=== PATIENT | female | born 1960 | race Caucasian/White ===

== ENCOUNTER → 2020-12-03 | Outpatient (CLI) | payer MEDICARE, OTHER | END | disposition home or self-care (01) | LOC: LABWHC1 16:38 | PROVIDERS: ATTEND Family Medicine | DX: Z20.822 Contact with and (suspected) exposure to COVID-19 (principal); L50.9 Urticaria, unspecified; R11.0 Nausea | CPT/HCPCS: U0003; C9803; U0005 ==

== ENCOUNTER → 2021-04-05 | Outpatient (CLI) | payer MEDICARE, OTHER ==
--- NOTE | 2021-04-05 11:18 | US ---
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 EXAM MEASUREMENTS: Liver Length: 15.0 cm Gallbladder Wall: Surgically absent CBD: 0.7 cm Right Kidney: 10.2 x 3.5 x 4.7 cm Pancreas: duct visualized measuring 0.2 cm, tail obscured by bowel gas Liver: wnl Gallbladder: Surgically absent. Evidence for sonographic Franco's sign: No CBD: wnl Right Kidney: Cystic area visualized measuring 1.7 x 2.0 x 1.5 cm IMPRESSION: 1. There appears to be a cyst within the right kidney. 2. Mild diffuse diminished echogenicity within the liver. No discrete masses are evident.
== END | disposition home or self-care (01) ==
LOC: RADUSWWP 07:21
PROVIDERS: ATTEND Internal Medicine Gastroenterology
DX: B19.20 Unspecified viral hepatitis C without hepatic coma (principal); Z90.49 Acquired absence of other specified parts of digestive tract
CPT/HCPCS: 76705

== ENCOUNTER 2021-12-25 12:26 | Inpatient (IN) | payer MEDICARE, MEDICAID ==
--- NOTE | 2021-12-25 14:32 | ED ---
General Adult HPI - General Chief complaint: Psychiatric Symptoms Stated complaint: Mental health evaluation Time Seen by Provider: 12/25/21 14:16 Source: patient, RN notes reviewed Mode of arrival: wheelchair Limitations: no limitations - History of Present Illness Initial comments: Patient is a pleasant 61-year-old female presenting to the emergency department with concerns for needing mental health evaluation. Patient states she has had a panic attack a couple of days ago that was severe. Patient has been anxious. Patient also feels depressed and is unclear if she has the will to live. No homicidal thoughts. Patient has not been sleeping well. Patient has not been eating and drinking well. Patient has racing thoughts. - Related Data Home Medications Medication Instructions Recorded Confirmed Albuterol Inhaler [Ventolin Hfa 2 puff INHALATION RT-Q4H PRN 12/25/21 12/25/21 Inhaler] Ascorbic Acid [Vitamin C] 1,000 mg PO DAILY 12/25/21 12/25/21 DULoxetine HCL [Cymbalta] 60 mg PO DIRECTED 12/25/21 12/25/21 Gabapentin 300 mg PO BID 12/25/21 12/25/21 HYDROcodone/APAP 10-325MG [[place] 1 tab PO QID PRN 12/25/21 12/25/21 10-325] L.acidoph,Paracasei, B.lactis 1 cap PO DAILY 12/25/21 12/25/21 [Probiotic] Lisinopril-Hctz 20-25 mg 1 tab PO BID 12/25/21 12/25/21 [Zestoretic 20-25] Ondansetron Odt [Zofran Odt] 4 mg PO Q8HR PRN 12/25/21 12/25/21 Ondansetron [Zofran] 4 mg PO BID PRN 12/25/21 12/25/21 Zinc 50 mg PO DAILY 12/25/21 12/25/21 tiZANidine [Zanaflex] 4 mg PO BID PRN 12/25/21 12/25/21 Allergies Allergy/AdvReac Type Severity Reaction Status Date / Time No Known Allergies Allergy Verified 12/25/21 15:57 Review of Systems ROS Statement: Those systems with pertinent positive or pertinent negative responses have been documented in the HPI. ROS Other: All systems not noted in ROS Statement are negative. Constitutional: Denies: fever Eyes: Denies: eye pain ENT: Denies: throat pain Respiratory: Denies: cough Cardiovascular: Denies: chest pain Endocrine: Denies: fatigue Gastrointestinal: Denies: abdominal pain Genitourinary: Denies: dysuria Skin: Denies: rash Neurological: Denies: weakness Psychiatric: Reports: as per HPI, anxiety, depression Past Medical History Past Medical History: COPD, Hypertension History of Any Multi-Drug Resistant Organisms: None Reported Past Surgical History: Back Surgery, Cholecystectomy Past Psychological History: Anxiety, Bipolar, Depression, Panic Disorder Smoking Status: Current every day smoker Past Alcohol Use History: None Reported Past Drug Use History: None Reported General Exam Limitations: no limitations General appearance: alert, in no apparent distress Head exam: Present: atraumatic Eye exam: Present: normal appearance Respiratory exam: Present: normal lung sounds bilaterally Cardiovascular Exam: Present: regular rate, normal rhythm GI/Abdominal exam: Present: soft. Absent: tenderness Extremities exam: Present: normal inspection Neurological exam: Present: alert Psychiatric exam: Present: anxious (Patient does appear mildly anxious) Skin exam: Present: normal color Course Vital Signs 12/25/21 12/25/21 13:02 19:00 Temperature 98.0 F Pulse Rate 82 80 Respiratory 18 18 Rate Blood Pressure 131/85 132/86 O2 Sat by Pulse 98 98 Oximetry Medical Decision Making - Medical Decision Making Patient was seen by mental health services with plan for admission. Patient did agree to sign herself in. - Lab Data Lab Results 12/25/21 Range/Units 16:04 Urine Opiates Screen Not Detected (NotDetected) Ur Oxycodone Screen Not Detected (NotDetected) Urine Methadone Screen Not Detected (NotDetected) Ur Propoxyphene Screen Not Detected (NotDetected) Ur Barbiturates Screen Not Detected (NotDetected) U Tricyclic Antidepress Not Detected (NotDetected) Ur Phencyclidine Scrn Not Detected (NotDetected) Ur Amphetamines Screen Not Detected (NotDetected) U Methamphetamines Scrn Not Detected (NotDetected) U Benzodiazepines Scrn Not Detected (NotDetected) Urine Cocaine Screen Not Detected (NotDetected) U Marijuana (THC) Screen Not Detected (NotDetected) Disposition Clinical Impression: Depression Disposition: TRANSFER TO PSYCH HOSP/UNIT Is patient prescribed a controlled substance at d/c from ED?: No Referrals: Orlando,Edwin G, MD [Primary Care Provider] - 1-2 days Time of Disposition: 20:28
[2021-12-25] MEDS ORDERED: ACETAMINOPHEN TAB 325 MG TAB PO STA (16:48)
[2021-12-25] MEDS ORDERED: KETOROLAC 15 MG/ML 1 ML VIAL IM STA (16:48)
[2021-12-25 17:02] LABS: Amphetamine Screen,Urine Not Detected (NotDetected); Barbiturate Screen,Urine Not Detected (NotDetected); Benzodiazepines Screen,Urine Not Detected (NotDetected); Cocaine Screen,Urine Not Detected (NotDetected); Methadone Screen, Urine Not Detected (NotDetected); Opiate Screen,Urine Not Detected (NotDetected); Oxycodone Screen, Urine Not Detected (NotDetected); Phencyclidine Screen,Urine Not Detected (NotDetected); Tricyclic Antidepressant,Urine Not Detected (NotDetected); Urn Cannabinoid Scrn Not Detected (NotDetected)
[2021-12-25] MEDS ORDERED: HYDROcodone/APAP 10-325MG 1 EACH TAB PO ONE (19:24)
[2021-12-25] MEDS ORDERED: ACETAMINOPHEN TAB 325 MG TAB PO PRN (22:44)
[2021-12-25] MEDS ORDERED: HALOPERIDOL LACTATE 5 MG/ML 1 ML VIAL IM PRN (22:44)
[2021-12-25] MEDS ORDERED: MAG HYDROX/AL HYDROX/SIMETH 30 ML CUP PO PRN (22:44)
[2021-12-25] MEDS ORDERED: LORazepam 1 MG TAB PO PRN (22:44)
[2021-12-25] MEDS ORDERED: MAGNESIUM HYDROXIDE 2,400 MG/10 ML CUP PO PRN (22:44)
[2021-12-25] MEDS ORDERED: LORazepam 2 MG/ML INJ IM PRN (22:53)
[2021-12-25] MEDS ORDERED: haloperidoL 5 MG TAB PO PRN (22:54)
[2021-12-25] MEDS ORDERED: traZODone HCL 50 MG TAB PO PRN (22:55)
[2021-12-25] MEDS ORDERED: ONDANSETRON 4 MG TAB PO PRN (22:55)
[2021-12-25] MEDS ORDERED: ALBUTEROL HFA INHALER INHALATION PRN (22:55)
[2021-12-25] MEDS ORDERED: DULoxetine HCL 60 MG CAPSULE.DR PO SCH (23:00)
[2021-12-26] MEDS: HYDROcodone/APAP 10-325MG 1 EACH TAB PO SCH ×3 (08:09→20:20)
[2021-12-26] MEDS: ASCORBIC ACID 500 MG TAB PO SCH (08:09)
[2021-12-26] MEDS: NICOTINE 14MG/24HR PATCH TRANSDERM SCH ×2 (08:09→13:10)
[2021-12-26] MEDS: GABAPENTIN 300 MG CAP PO SCH ×2 (08:09→20:19)
[2021-12-26] MEDS: ZINC SULFATE 220 MG CAP PO SCH (08:33)
[2021-12-26] MEDS: LISINOPRIL-HCTZ 20-25 MG 1 EACH TAB PO SCH ×2 (08:33→20:21)
[2021-12-26] MEDS: LACTOBACILLUS ACIDOPH & BULGAR 1 EACH PACKET PO SCH (08:36)
[2021-12-26] MEDS ORDERED: tiZANidine 4 MG TAB PO PRN (09:00)
[2021-12-26] MEDS ORDERED: SERTRALINE 50 MG TAB PO STA (10:33)
[2021-12-26 11:46] LABS: Basophils % (A) 0 %; Eosinophils # (A) 0.3 k/uL (0-0.7); Eosinophils % (A) 8 %; HCT 40.2 % (34.0-46.0); HGB 13.3 gm/dL (11.4-16.0); Lymphocytes # (A) 1.6 k/uL (1.0-4.8); Lymphocytes % (A) 41 %; MCH 32.3 pg (25.0-35.0); MCHC 33.2 g/dL (31.0-37.0); MCV 97.4 fL (80.0-100.0); Mean Platelet Volume 7.9; Monocytes # (A) 0.3 k/uL (0-1.0); Monocytes % (A) 6 %; Neutrophils # (A) 1.5 k/uL (1.3-7.7); Neutrophils % (A) 39 %; Platelet Count 179 k/uL (150-450); RBC 4.12 m/uL (3.80-5.40); RDW 13.7 % (11.5-15.5); WBC 3.9 k/uL (3.8-10.6)
[2021-12-26 11:59] LABS: ALT 68 U/L (4-34); AST 96 U/L (14-36); African American GFR (CKD) >90 (>60 ml/min/1.73 sqM); Albumin 3.9 g/dL (3.5-5.0); Alkaline Phosphatase 91 U/L (38-126); Anion Gap 6 mmol/L; Blood Urea Nitrogen 20 mg/dL (7-17); Calcium 8.9 mg/dL (8.4-10.2); Carbon Dioxide 28 mmol/L (22-30); Chloride 96 mmol/L (98-107); Glucose 91 mg/dL (74-99); Non-African American GFR(CKD) >90 (>60 ml/min/1.73 sqM); Potassium 4.7 mmol/L (3.5-5.1); Sodium 130 mmol/L (137-145); Total Bilirubin 1.1 mg/dL (0.2-1.3); Total Protein 7.5 g/dL (6.3-8.2)
--- NOTE | 2021-12-26 13:25 | P.HP ---
Psychiatric H&P - . H&P Date: 12/26/21 History & Physical: Allergies Allergy/AdvReac Type Severity Reaction Status Date / Time No Known Allergies Allergy Verified 12/25/21 15:57 Vital Signs Temp 96.9 F L 12/26/21 02:32 Pulse 85 12/26/21 08:36 Resp 18 12/25/21 19:00 BP 133/78 12/26/21 08:36 Pulse Ox 98 12/25/21 19:00 Intake & Output 12/25/21 12/26/21 12/26/21 18:59 06:59 18:59 Weight 65.771 kg Laboratory Last Values WBC 3.9 k/uL (3.8-10.6) 12/26/21 11:08 RBC 4.12 m/uL (3.80-5.40) 12/26/21 11:08 Hgb 13.3 gm/dL (11.4-16.0) 12/26/21 11:08 Hct 40.2 % (34.0-46.0) 12/26/21 11:08 MCV 97.4 fL (80.0-100.0) 12/26/21 11:08 MCH 32.3 pg (25.0-35.0) 12/26/21 11:08 MCHC 33.2 g/dL (31.0-37.0) 12/26/21 11:08 RDW 13.7 % (11.5-15.5) 12/26/21 11:08 Plt Count 179 k/uL (150-450) 12/26/21 11:08 MPV 7.9 12/26/21 11:08 Neutrophils % 39 % 12/26/21 11:08 Lymphocytes % 41 % 12/26/21 11:08 Monocytes % 6 % 12/26/21 11:08 Eosinophils % 8 % 12/26/21 11:08 Basophils % 0 % 12/26/21 11:08 Neutrophils # 1.5 k/uL (1.3-7.7) 12/26/21 11:08 Lymphocytes # 1.6 k/uL (1.0-4.8) 12/26/21 11:08 Monocytes # 0.3 k/uL (0-1.0) 12/26/21 11:08 Eosinophils # 0.3 k/uL (0-0.7) 12/26/21 11:08 Basophils # 0.0 k/uL (0-0.2) 12/26/21 11:08 Sodium 130 mmol/L (137-145) L 12/26/21 11:08 Potassium 4.7 mmol/L (3.5-5.1) 12/26/21 11:08 Chloride 96 mmol/L (98-107) L 12/26/21 11:08 Carbon Dioxide 28 mmol/L (22-30) 12/26/21 11:08 Anion Gap 6 mmol/L 12/26/21 11:08 BUN 20 mg/dL (7-17) H 12/26/21 11:08 Creatinine 0.72 mg/dL (0.52-1.04) 12/26/21 11:08 Est GFR (CKD-EPI)AfAm >90 (>60 ml/min/1.73 sqM) 12/26/21 11:08 Est GFR (CKD-EPI)NonAf >90 (>60 ml/min/1.73 sqM) 12/26/21 11:08 Glucose 91 mg/dL (74-99) 12/26/21 11:08 Calcium 8.9 mg/dL (8.4-10.2) 12/26/21 11:08 Total Bilirubin 1.1 mg/dL (0.2-1.3) 12/26/21 11:08 AST 96 U/L (14-36) H 12/26/21 11:08 ALT 68 U/L (4-34) H 12/26/21 11:08 Alkaline Phosphatase 91 U/L (38-126) 12/26/21 11:08 Total Protein 7.5 g/dL (6.3-8.2) 12/26/21 11:08 Albumin 3.9 g/dL (3.5-5.0) 12/26/21 11:08 TSH <0.015 mIU/L (0.465-4.680) L 12/26/21 11:08 Urine Opiates Screen Not Detected (NotDetected) 12/25/21 16:04 Ur Oxycodone Screen Not Detected (NotDetected) 12/25/21 16:04 Urine Methadone Screen Not Detected (NotDetected) 12/25/21 16:04 Ur Propoxyphene Screen Not Detected (NotDetected) 12/25/21 16:04 Ur Barbiturates Screen Not Detected (NotDetected) 12/25/21 16:04 U Tricyclic Antidepress Not Detected (NotDetected) 12/25/21 16:04 Ur Phencyclidine Scrn Not Detected (NotDetected) 12/25/21 16:04 Ur Amphetamines Screen Not Detected (NotDetected) 12/25/21 16:04 U Methamphetamines Scrn Not Detected (NotDetected) 12/25/21 16:04 U Benzodiazepines Scrn Not Detected (NotDetected) 12/25/21 16:04 Urine Cocaine Screen Not Detected (NotDetected) 12/25/21 16:04 U Marijuana (THC) Screen Not Detected (NotDetected) 12/25/21 16:04 Coronavirus (PCR) Not Detected (Not Detectd) 12/25/21 20:27 12/26/21 13:25 IDENTIFYING DATA: Patient is a single, on disability, 61-year-old female with significant history of depression and anxiety presenting to the hospital for worsening depression. HPI: Patient presented to the hospital on 12/25/2021, brought into the emergency department by EMS for panic attacks and depression. While evaluated by EPS, the patient was noted to be disheveled and endorsing significant symptoms of depression and anxiety. The patient did endorse suicidal ideation to the EPS nurse stating "I'm ready to go home and see my mother and my daughter. I am very sad and there is no 'umph' in me." The patient signed herself voluntarily on to the psychiatric unit. Upon presentation psychiatric unit, the patient does endorse significant symptoms of depression. She reports that this has been going on for the past few weeks since . She reports that during she was speaking with her ex partner of 10 years over the phone and felt increasingly depressed and isolated being by herself in [place]. She reports significant symptoms of depression including increased crying episodes, increased sleep, decreased appetite, anhedonia, and feelings of loneliness and isolation. She denies any suicidal or homicidal ideation, intention, and/or plan. She denies any previous attempts at suicide. She reports that this all came to a head when she was driving to [place] to see her childhood home. She states that she experienced a panic attack and was unable to control herself. She stated that she was crying uncontrollably and could not breathe. She decided to come to the psychiatric unit to seek help. The patient also reports that she set up an appointment with clinical [facility] services on 12/30/2021. In regards to psychotic symptoms, the patient denies any auditory or visual hallucinations. She is denying any paranoia or other delusions. Patient denies any significant symptoms of patel. She reports that she was pretty diagnosed with bipolar 2 disorder however denies any significant history of manic and hypomanic episodes. She currently denies any racing thoughts, increased goal- directed activity, periods of excessive energy, or grandiosity. PAST PSYCHIATRIC HISTORY: Patient states that she was pretty diagnosed with depression, anxiety, and bipolar 2 disorder. The patient is able to recall being previously prescribed regimen of Abilify, Wellbutrin, Adderall, and Xanax. She is currently on a regimen of Cymbalta and Klonopin by her outpatient PCP. Patient denies any previous psychiatric hospitalizations. Patient denies any psychiatric outpatient follow-up. Patient denies any history of suicide attempts in the past. PMH: Past Medical History: COPD, Hypertension History of Any Multi-Drug Resistant Organisms: None Reported Past Surgical History: Back Surgery, Cholecystectomy Past Psychological History: Anxiety, Bipolar, Depression, Panic Disorder Smoking Status: Current every day smoker Past Alcohol Use History: None Reported Past Drug Use History: None Reported ALLERGIES: NO KNOWN DRUG ALLERGIES CHEMICAL DEPENDENCY HISTORY: Patient reports that she appears he smoked one and half packs per day but has decreased this to 5 cigarettes per day. She currently denies any alcohol, marijuana, or illicit drug use. FAMILY PSYCHIATRIC/SUBSTANCE USE HISTORY: Patient reports that her mother has been previous diagnosis of depression and anxiety. She states that her father committed suicide. SOCIAL HISTORY: Patient was born in [place], [place] and raised in [place], [place]. She moved to [place] 10 years ago and moved back to [place] a year and a half ago. She moved therefore love but is currently not with that partner. She has 4 children from a previous relationship including 2 sons and 2 daughters however reports minimal contact with them. She also reports that one of her daughters due to lupus in 2011. The patient currently receives disability after she was crushed by a horse in 2001. She reports a history of a brain bleed. She attended some college. MENTAL STATUS EXAM: General Appearance: Patient appears to be stated age is alert, directable, and attempts to cooperate. Patient appears to have fair hygiene and grooming. Behavior: Patient is seated without any agitated behavior. Eye contact is appropriate. Psychomotor activity appears slow. Speech: Patient's speech is fluent and nonpressured. Monotone. Low in volume. Nonspontaneous. Mood/Affect: Patient reports their mood is depressed, affect is congruent and withdrawn. Suicidality/Homicidality: Patient denies any suicidal or homicidal ideation. Perceptions: Patient denies any visual hallucinations and denies any auditory hallucinations Though content/process: There is no evidence of any delusional thought content and thought process is linear and goal-directed. Memory and concentration: AOX3, grossly intact for the purposes of this session. Can spell "WORLD" backwards Judgment and insight: Fair STRENGTHS/WEAKNESSES: Strength is that the patient is future oriented and has good insight. Weakness is that the patient has little social supports. INTELLECT: average IMPRESSIONS: Major depressive disorder, recurrent, severe, without psychotic features Nicotine dependence PLAN: -Patient is admitted under voluntary status to MHU for stabilization of psychiatric symptoms and safety. Patient signed adult voluntary form and medication consent and is placed in patient's chart. -Medications : Discontinue Cymbalta and start Zoloft 50 mg by mouth daily for depression/anxiety Start Vistaril 50 mg by mouth at bedtime for insomnia/anxiety -Ativan and Haldol PRN for agitation/aggression -Patient was counselled on substance abuse and desired to cut back on use -Patient was informed of the risks, benefits and side effects of the medication and patient verbally consented to taking the medications. Patient signed med consent form and was placed in chart. -Internal Medicine consult to perform medical evaluation and physical. -NRT - nicotine patch -SW on board for discharge planning. Encourage patient to participate in groups to work on coping skills. 12/26/21 13:25
--- NOTE | 2021-12-26 17:27 | CONS ---
CONSULTATION CHIEF COMPLAINT: Major depression. HISTORY OF PRESENT ILLNESS: This is another admission for this 61-year-old white female who has a long-standing history of depression. She has a string of failed relationship issues in her life. She also lost one of her two daughters with lupus several years ago. She apparently became more and more depressed and distraught and came to the emergency room. REVIEW OF SYSTEMS: She denies headaches, change in vision or hearing, chest pain, shortness of breath, hypertension, palpitations, orthopnea, PND, abdominal pain, nausea, vomiting, hematemesis, melena, hematochezia, jaundice, renal failure, frequency, urgency, dysuria, hematuria, nocturia or incontinence. She has had no vaginal bleeding or discharge. She does smoke. Past medical history, family history, and personal and social histories reveal that she has been on Vicodin p.r.n., lidocaine patches, , gabapentin, lisinopril/hydrochlorothiazide and an albuterol inhaler. Surgically she has had a tubal ligation, cholecystectomy, , L-spine fusion, and a procedure on the right eye. She continues to smoke. She is not drinking, but she does have a history of alcoholism. PHYSICAL EXAMINATION: Her blood pressure is 132/88 with a pulse of 60, respirations of 12, and she is afebrile. In general she appeared to be well developed, well nourished and in no acute distress. Skin color is normal. Skin is warm, dry. Lymph nodes are not enlarged. Head, ears, eyes, nose, mouth and throat are normal. Neck veins are not distended. Thyroid is not enlarged. Chest is clear. Cardiac exam is normal. The abdomen is soft and nontender. Extremities are normal. Neurologically she is intact. She is admitted to the hospital with the diagnosis of major depression. RECOMMENDATIONS: None at this time. MMODL / IJN: [id number] /
[2021-12-26] MEDS: hydrOXYzine pamoate 25 MG CAP PO SCH (20:20)
[2021-12-27] MEDS: GABAPENTIN 300 MG CAP PO SCH ×2 (08:17→21:31)
[2021-12-27] MEDS: LISINOPRIL-HCTZ 20-25 MG 1 EACH TAB PO SCH ×2 (08:17→21:30)
[2021-12-27] MEDS: ZINC SULFATE 220 MG CAP PO SCH (08:17)
[2021-12-27] MEDS: HYDROcodone/APAP 10-325MG 1 EACH TAB PO SCH ×3 (08:19→21:31)
[2021-12-27] MEDS: ASCORBIC ACID 500 MG TAB PO SCH (08:19)
[2021-12-27] MEDS: NICOTINE 14MG/24HR PATCH TRANSDERM SCH (08:26)
[2021-12-27] MEDS ORDERED: SERTRALINE 25 MG TAB PO SCH (09:00)
[2021-12-27] MEDS: LACTOBACILLUS ACIDOPH & BULGAR 1 EACH PACKET PO SCH (09:16)
--- NOTE | 2021-12-27 11:11 | P.PN ---
Progress Note - Text Progress Note Date: 12/27/21 Interval History: Patient was seen resting in bed and was directable and agreeable to speak with machine sign writer in her room., The patient is not reporting any suicidal or homicidal ideation, intention, and/or plan. She is denying any auditory or visual hallucinations. She reports no paranoia or delusions. Patient has been adherent with her medication and is not reporting any significant side effects at this time. The patient continues to report elevated anxiety and depression however states that she is feeling better. She continues to report feelings of isolation and loneliness. She denies any issues regarding her sleep or her appetite. Mental Status Exam: General Appearance: Patient appears to be stated age is alert, directable, and cooperative. Behavior: Patient is calmly lying down in bed without any agitated behavior. I contact is appropriate. Speech: Patient's speech is fluent and nonpressured. Mood/Affect: Mood is improving mildly, affect is congruent and constricted. Suicidality/Homicidality: Patient denies having any suicidal or homicidal ideation intent or plan. Perceptions: Patient denies any visual hallucinations and denies any auditory hallucinations Though content/process: There is no evidence of any delusional thought content and thought process is linear and goal-directed. Memory and concentration: AOX3, grossly intact for the purposes of this session Judgment and insight: Improving mildly Vital Signs Temp 96.9 F L 12/26/21 02:32 Pulse 85 12/26/21 08:36 Resp 18 12/25/21 19:00 BP 133/78 12/26/21 08:36 Pulse Ox 98 12/25/21 19:00 Laboratory Results - Last 24 Hours 12/26/21 12/26/21 11:08 11:08 WBC 3.9 RBC 4.12 Hgb 13.3 Hct 40.2 MCV 97.4 MCH 32.3 MCHC 33.2 RDW 13.7 Plt Count 179 MPV 7.9 Neutrophils % 39 Lymphocytes % 41 Monocytes % 6 Eosinophils % 8 Basophils % 0 Neutrophils # 1.5 Lymphocytes # 1.6 Monocytes # 0.3 Eosinophils # 0.3 Basophils # 0.0 Sodium 130 L Potassium 4.7 Chloride 96 L Carbon Dioxide 28 Anion Gap 6 BUN 20 H Creatinine 0.72 Est GFR (CKD-EPI)AfAm >90 Est GFR (CKD-EPI)NonAf >90 Glucose 91 Calcium 8.9 Total Bilirubin 1.1 AST 96 H ALT 68 H Alkaline Phosphatase 91 Total Protein 7.5 Albumin 3.9 TSH <0.015 L Assessment Major depressive disorder, recurrent, severe, without psychotic features Nicotine dependence Hyponatremia Plan: -Patient continues to meet criteria for inpatient psychiatric admission for symptom stabilization and safety. Patient has signed adult voluntary form and medication consent and was placed in patient's chart. -Medications: Continue Zoloft at 50 mg by mouth daily for depression/anxiety. Concern for hyponatremia. Therefore we will not increase this medication at this time. Continue Vistaril 50 mg by mouth at bedtime for insomnia/anxiety -When necessary Ativan and Haldol for agitation/aggression. -NRT - nicotine patch -SW on board for discharge planning. Encouraged the patient to participate in milieu.
[2021-12-27] MEDS: hydrOXYzine pamoate 25 MG CAP PO SCH (21:30)
[2021-12-28 06:56] VITALS: RESP 16
[2021-12-28] MEDS: SERTRALINE 50 MG TAB PO SCH (08:08)
[2021-12-28] MEDS: GABAPENTIN 300 MG CAP PO SCH ×2 (08:08→21:01)
[2021-12-28] MEDS: HYDROcodone/APAP 10-325MG 1 EACH TAB PO SCH ×3 (08:08→21:01)
[2021-12-28] MEDS: LISINOPRIL-HCTZ 20-25 MG 1 EACH TAB PO SCH ×3 (08:08→20:59)
[2021-12-28] MEDS: ASCORBIC ACID 500 MG TAB PO SCH (08:10)
[2021-12-28] MEDS: NICOTINE 14MG/24HR PATCH TRANSDERM SCH (08:12)
[2021-12-28] MEDS: ZINC SULFATE 220 MG CAP PO SCH (08:12)
[2021-12-28] MEDS ORDERED: SERTRALINE 100 MG TAB PO SCH (09:00)
[2021-12-28] MEDS: LACTOBACILLUS ACIDOPH & BULGAR 1 EACH PACKET PO SCH (09:36)
--- NOTE | 2021-12-28 11:03 | P.PN ---
Subjective Progress Note Date: 12/28/21 Principal diagnosis: Major depressive disorder recurrent severe without psychotic features Anxiety disorder unspecified Nicotine dependence Subjective data: I'm here because I was having panic attacks, I have been in a bad relationship for about a year from someone from [place] I have been on disability I have 4 children but I'm not in touch with them I have not needed any medications but I think I need to have them adjusted now I just had all my teeth pulled out last week and I'm in pain and difficulty to talk Objective data: Patient remains very vague and superficial about her symptoms She was pleasant and cooperative overall Affect at this time remains euthymic Thought processes are concrete but goal directed She denies any suicidal or homicidal ideations at this time No signs of any overt psychosis noted Plan: I didn't current care and support continue current pharmacological intervention Patient reports no side effects from Zoloft and Vistaril as prescribed Continue participation on the soares activities Continue assertiveness training and supportive care Syed Ciera Alicea 12/28/2021 Objective - Vital Signs Vital signs: Vital Signs Temp 96.9 F L 12/28/21 06:55 Pulse 99 12/28/21 09:39 Resp 16 12/28/21 06:55 BP 111/72 12/28/21 09:39 Pulse Ox 98 12/25/21 19:00 - Labs CBC & Chem 7: 12/26/21 11:08 12/26/21 11:08
[2021-12-28] MEDS: hydrOXYzine pamoate 25 MG CAP PO SCH (21:01)
[2021-12-29] MEDS: LACTOBACILLUS ACIDOPH & BULGAR 1 EACH PACKET PO SCH (07:55)
[2021-12-29] MEDS: ZINC SULFATE 220 MG CAP PO SCH (07:55)
[2021-12-29] MEDS: HYDROcodone/APAP 10-325MG 1 EACH TAB PO SCH ×3 (07:56→21:21)
[2021-12-29] MEDS: GABAPENTIN 300 MG CAP PO SCH ×2 (07:56→21:22)
[2021-12-29] MEDS: NICOTINE 14MG/24HR PATCH TRANSDERM SCH (07:56)
[2021-12-29] MEDS: LISINOPRIL-HCTZ 20-25 MG 1 EACH TAB PO SCH (07:56)
[2021-12-29] MEDS: ASCORBIC ACID 500 MG TAB PO SCH (07:56)
[2021-12-29] MEDS: SERTRALINE 50 MG TAB PO SCH (07:56)
[2021-12-29 08:21] LABS: ALT 119 U/L (4-34); African American GFR (CKD) >90 (>60 ml/min/1.73 sqM); Albumin 4.3 g/dL (3.5-5.0); Anion Gap 10 mmol/L; Blood Urea Nitrogen 30 mg/dL (7-17); Calcium 9.2 mg/dL (8.4-10.2); Carbon Dioxide 27 mmol/L (22-30); Chloride 94 mmol/L (98-107); Glucose 97 mg/dL (74-99); Non-African American GFR(CKD) >90 (>60 ml/min/1.73 sqM); Potassium 4.9 mmol/L (3.5-5.1); Sodium 131 mmol/L (137-145); Total Bilirubin 1.5 mg/dL (0.2-1.3); Total Protein 8.3 g/dL (6.3-8.2)
[2021-12-29 08:22] LABS: AST 198 U/L (14-36); Alkaline Phosphatase 94 U/L (38-126)
--- NOTE | 2021-12-29 09:56 | P.PN ---
Subjective Progress Note Date: 12/29/21 Principal diagnosis: Major depressive disorder recurrent severe without psychotic features Anxiety disorder unspecified Nicotine dependence Subjective data: I am feeling better now I was in a bad relationship before I follow-up with the local mental health clinic and I take medications regularly I'm ready to go home now" Objective data: Patient remains very vague and superficial about her symptoms She was pleasant and cooperative overall Affect at this time remains euthymic Patient's insight into her problem is poor Patient continues to rationalize and intellectualize Recall for her recent incidents involving around her hospitalization remains poor Thought processes are concrete but goal directed She denies any suicidal or homicidal ideations at this time No signs of any overt psychosis noted Plan: Continue current care and support continue current pharmacological intervention Patient reports no side effects from Zoloft and Vistaril as prescribed Continue participation on the soares activities Continue assertiveness training [facility] Objective - Vital Signs Vital signs: Vital Signs Temp 96.9 F L 12/28/21 06:55 Pulse 103 H 12/29/21 07:58 Resp 16 12/28/21 06:55 BP 104/67 12/29/21 07:58 Pulse Ox 98 12/25/21 19:00 Intake & Output 12/28/21 12/29/21 12/29/21 18:59 06:59 18:59 Weight 63.7 kg - Labs CBC & Chem 7: 12/26/21 11:08 12/29/21 07:10 Labs: Abnormal Lab Results - Last 24 Hours (Table) 12/29/21 Range/Units 07:10 Sodium 131 L (137-145) mmol/L Chloride 94 L (98-107) mmol/L BUN 30 H (7-17) mg/dL Total Bilirubin 1.5 H (0.2-1.3) mg/dL AST 198 H (14-36) U/L ALT 119 H (4-34) U/L Total Protein 8.3 H (6.3-8.2) g/dL
[2021-12-29] MEDS: hydrOXYzine pamoate 25 MG CAP PO SCH (21:21)
[2021-12-30] MEDS: LISINOPRIL-HCTZ 20-25 MG 1 EACH TAB PO SCH ×2 (00:50→08:33)
[2021-12-30 06:42] VITALS: BP 116/60; PULSE 70; TEMP 97.8
[2021-12-30] MEDS: ZINC SULFATE 220 MG CAP PO SCH (08:33)
[2021-12-30] MEDS: ASCORBIC ACID 500 MG TAB PO SCH (08:33)
[2021-12-30] MEDS: GABAPENTIN 300 MG CAP PO SCH (08:33)
[2021-12-30] MEDS: SERTRALINE 50 MG TAB PO SCH (08:33)
[2021-12-30] MEDS: NICOTINE 14MG/24HR PATCH TRANSDERM SCH (08:34)
[2021-12-30] MEDS: LACTOBACILLUS ACIDOPH & BULGAR 1 EACH PACKET PO SCH (08:34)
[2021-12-30] MEDS: HYDROcodone/APAP 10-325MG 1 EACH TAB PO SCH (08:34)
--- NOTE | 2021-12-30 12:36 | P.DS ---
Providers Date of admission: 12/25/21 22:27 Expected date of discharge: 12/30/21 Attending physician: Tigre Fraser MD Consults: 12/25/21 22:44 Consult Physician Routine Consulting Provider: Edwin Ferguson Consult Reason/Comments: history and physical/medical management Do you want consulting provider notified?: Yes Primary care physician: Edwin Ferguson - Discharge Diagnosis(es) (1) Major depressive disorder, recurrent episode, severe Current Visit: Yes Status: Acute (2) Nicotine dependence Current Visit: Yes Status: Chronic Priority: Medium Hospital Course: Admission HPI: Patient is a single, on disability, 61-year-old female with significant history of depression and anxiety presenting to the hospital for worsening depression. HPI: Patient presented to the hospital on 12/25/2021, brought into the emergency department by EMS for panic attacks and depression. While evaluated by EPS, the patient was noted to be disheveled and endorsing significant symptoms of depression and anxiety. The patient did endorse suicidal ideation to the EPS nurse stating "I'm ready to go home and see my mother and my daughter. I am very sad and there is no 'umph' in me." The patient signed herself voluntarily on to the psychiatric unit. Upon presentation psychiatric unit, the patient does endorse significant symptoms of depression. She reports that this has been going on for the past few weeks since . She reports that during she was speaking with her ex partner of 10 years over the phone and felt increasingly depressed and isolated being by herself in [place]. She reports significant symptoms of depression including increased crying episodes, increased sleep, decreased appetite, anhedonia, and feelings of loneliness and isolation. She denies any suicidal or homicidal ideation, intention, and/or plan. She denies any previous attempts at suicide. She reports that this all came to a head when she was driving to [place] to see her childhood home. She states that she experienced a panic attack and was unable to control herself. She stated that she was crying uncontrollably and could not breathe. She decided to come to the psychiatric unit to seek help. The patient also reports that she set up an appointment with clinical [facility] counseling services on 12/30/2021. In regards to psychotic symptoms, the patient denies any auditory or visual hallucinations. She is denying any paranoia or other delusions. Patient denies any significant symptoms of patel. She reports that she was pretty diagnosed with bipolar 2 disorder however denies any significant history of manic and hypomanic episodes. She currently denies any racing thoughts, increased goal- directed activity, periods of excessive energy, or grandiosity. Patient states that she was pretty diagnosed with depression, anxiety, and bipolar 2 disorder. The patient is able to recall being previously prescribed regimen of Abilify, Wellbutrin, Adderall, and Xanax. She is currently on a regimen of Cymbalta and Klonopin by her outpatient PCP. Patient denies any previous psychiatric hospitalizations. Patient denies any psychiatric outpatient follow-up. Patient denies any history of suicide attempts in the past. Hospital course: Upon admission to the unit patient was initially presenting with significant symptoms depression, anxiety, and suicidal ideation. Patient was however directable and agreeable to commence treatment. Patient got along well with other patients on the unit and followed unit protocol. Patient was compliant with the medications and denied any side effects throughout hospital course. Patient was started on Zoloft and Vistaril for maintenance of depression and anxiety. Patient spoke of her stressors and engaged in therapy both group and individual. Patient was also seen by medical team for history and physical exam. Over the course of hospital physician, the patient displayed gradual improvement in regards to her mood, sleep, and suicidality. The patient became more future and goal oriented. On the day of discharge, the patient is not reporting any suicidal or homicidal ideation, intention, and/or plan. She denies any access to firearms or other weapons. The patient reports no auditory or visual hallucinations. She denies any paranoia or other delusions. The patient has been adherent with her medications reports no significant side effects at this time. The patient was counseled at length on the importance of medication adherence and appropriate outpatient follow-up. The patient does not have a significant history substance abuse however was counseled on abstaining from all substances including alcohol, tobacco, marijuana, and other illicit drugs. Prior to discharge, family meeting will be referred to social recurrence any questions and ensure safety. Mental status exam: General Appearance: Patient appears to be stated age is alert, pleasant, and cooperative. Patient is in no acute distress and has fair hygiene and grooming Behavior: Patient is calmly seated without any agitated behavior. Speech: Patient's speech is fluent and nonpressured. Mood/Affect: Patient reports their mood is "much better", affect is congruent and euthymic. Suicidality/Homicidality: Patient denies having any suicidal or homicidal ideation intent or plan. Perceptions: Patient denies any auditory or visual hallucinations. Though content/process: There is no evidence of any delusional thought content and thought process is linear and goal-directed. Patient is future oriented. Memory and concentration: AOX3, grossly intact for the purposes of this session. Can spell "WORLD" backwards correctly. Judgment and insight: Improved Vital Signs Temp 97.8 F 12/30/21 06:41 Pulse 70 12/30/21 06:41 Resp 16 12/30/21 06:41 BP 116/60 12/30/21 06:41 Pulse Ox 98 12/30/21 06:41 Intake & Output 12/29/21 12/30/21 12/30/21 18:59 06:59 18:59 Weight 63.7 kg Impression: Major depressive disorder, recurrent, severe, without psychotic features Nicotine dependence Plan: -Continue with discharge today as patient has improved and stabilized psychiatrically and is not currently an imminent threat to herself and/or others. Patient's acute presentation has been treated. She is stable for discharge. She has no prior attempts at suicide. Overall risk remains low. -Continue medications: Zoloft 50 mg by mouth daily for depression/anxiety Vistaril 50 mg by mouth at bedtime for anxiety/insomnia -Patient was counseled on the need for medication compliance and appropriate follow-up at mental health and also primary care for medical issues. Patient verbalized understanding and agreed. -Social work to arrange for and conduct family meeting to ensure safety upon discharge and answer any questions/concerns. Social work also to arrange for patients follow up appointments with [facility] for psychiatric care along with follow up with primary care provider. -Patient counseled on abstaining from recreational drugs and marijuana and alcohol. Was informed/educated on the adverse effects on their physical and mental health. Patient verbally agreed and understood. -Patient was instructed to return to the hospital or seek immediate medical care if their psychiatric or medical symptoms do worsen or reoccur. -Psychoeducation and supportive therapy provided to patient. Risks and benefits of pharmacological treatment versus the risks and benefits of nontreatment weight and discussed. Informed consent discussion held. Common side effects of psychotropics discussed such as, but not limited to headache, GI disturbance, sexual dysfunction, movement disorders, sedation, and orthostatic hypotension. Life threatening and blackbox warnings of prescribed medications also discussed. Potential risks of operating a vehicle or heavy machinery discussed with patient at length. Advised on importance of compliance and a reliable and responsible manner. Patient advised to review FDA consumer labeling of all medications prior to taking. Patient verbalized understanding of potential risks, and agrees with current treatment plan. Patient advised to medically contact physician/emergency personnel if any acute changes in condition occur. Allergies Allergy/AdvReac Type Severity Reaction Status Date / Time No Known Allergies Allergy Verified 12/25/21 15:57 Laboratory Results WBC 3.9 k/uL (3.8-10.6) 12/26/21 11:08 RBC 4.12 m/uL (3.80-5.40) 12/26/21 11:08 Hgb 13.3 gm/dL (11.4-16.0) 12/26/21 11:08 Hct 40.2 % (34.0-46.0) 12/26/21 11:08 MCV 97.4 fL (80.0-100.0) 12/26/21 11:08 MCH 32.3 pg (25.0-35.0) 12/26/21 11:08 MCHC 33.2 g/dL (31.0-37.0) 12/26/21 11:08 RDW 13.7 % (11.5-15.5) 12/26/21 11:08 Plt Count 179 k/uL (150-450) 12/26/21 11:08 MPV 7.9 12/26/21 11:08 Neutrophils % 39 % 12/26/21 11:08 Lymphocytes % 41 % 12/26/21 11:08 Monocytes % 6 % 12/26/21 11:08 Eosinophils % 8 % 12/26/21 11:08 Basophils % 0 % 12/26/21 11:08 Neutrophils # 1.5 k/uL (1.3-7.7) 12/26/21 11:08 Lymphocytes # 1.6 k/uL (1.0-4.8) 12/26/21 11:08 Monocytes # 0.3 k/uL (0-1.0) 12/26/21 11:08 Eosinophils # 0.3 k/uL (0-0.7) 12/26/21 11:08 Basophils # 0.0 k/uL (0-0.2) 12/26/21 11:08 Sodium 131 mmol/L (137-145) L 12/29/21 07:10 Potassium 4.9 mmol/L (3.5-5.1) 12/29/21 07:10 Chloride 94 mmol/L (98-107) L 12/29/21 07:10 Carbon Dioxide 27 mmol/L (22-30) 12/29/21 07:10 Anion Gap 10 mmol/L 12/29/21 07:10 BUN 30 mg/dL (7-17) H 12/29/21 07:10 Creatinine 0.70 mg/dL (0.52-1.04) 12/29/21 07:10 Est GFR (CKD-EPI)AfAm >90 (>60 ml/min/1.73 sqM) 12/29/21 07:10 Est GFR (CKD-EPI)NonAf >90 (>60 ml/min/1.73 sqM) 12/29/21 07:10 Glucose 97 mg/dL (74-99) 12/29/21 07:10 Calcium 9.2 mg/dL (8.4-10.2) 12/29/21 07:10 Total Bilirubin 1.5 mg/dL (0.2-1.3) H 12/29/21 07:10 AST 198 U/L (14-36) H 12/29/21 07:10 ALT 119 U/L (4-34) H 12/29/21 07:10 Alkaline Phosphatase 94 U/L (38-126) 12/29/21 07:10 Total Protein 8.3 g/dL (6.3-8.2) H 12/29/21 07:10 Albumin 4.3 g/dL (3.5-5.0) 12/29/21 07:10 TSH <0.015 mIU/L (0.465-4.680) L 12/26/21 11:08 Urine Opiates Screen Not Detected (NotDetected) 12/25/21 16:04 Ur Oxycodone Screen Not Detected (NotDetected) 12/25/21 16:04 Urine Methadone Screen Not Detected (NotDetected) 12/25/21 16:04 Ur Propoxyphene Screen Not Detected (NotDetected) 12/25/21 16:04 Ur Barbiturates Screen Not Detected (NotDetected) 12/25/21 16:04 U Tricyclic Antidepress Not Detected (NotDetected) 12/25/21 16:04 Ur Phencyclidine Scrn Not Detected (NotDetected) 12/25/21 16:04 Ur Amphetamines Screen Not Detected (NotDetected) 12/25/21 16:04 U Methamphetamines Scrn Not Detected (NotDetected) 12/25/21 16:04 U Benzodiazepines Scrn Not Detected (NotDetected) 12/25/21 16:04 Urine Cocaine Screen Not Detected (NotDetected) 12/25/21 16:04 U Marijuana (THC) Screen Not Detected (NotDetected) 12/25/21 16:04 Coronavirus (PCR) Not Detected (Not Detectd) 12/25/21 20:27 Patient Condition at Discharge: Stable Plan - Discharge Summary New Discharge Prescriptions: New hydrOXYzine pamoate [Vistaril] 50 mg PO HS 30 Days cap Nicotine 14Mg/24Hr Patch [Habitrol] 1 patch TRANSDERM DAILY 30 Days patch Sertraline [Zoloft] 50 mg PO DAILY 30 Days tab Continue L.acidoph,Paracasei, B.lactis [Probiotic] 1 cap PO DAILY Ascorbic Acid [Vitamin C] 1,000 mg PO DAILY tiZANidine [Zanaflex] 4 mg PO BID PRN PRN Reason: Muscle Pain Ondansetron Odt [Zofran ODT] 4 mg PO Q8HR PRN PRN Reason: Nausea Lisinopril-Hctz 20-25 mg [Zestoretic 20-25] 1 tab PO BID Gabapentin 300 mg PO BID Albuterol Inhaler [Ventolin Hfa Inhaler] 2 puff INHALATION RT-Q4H PRN PRN Reason: Shortness Of Breath Ondansetron [Zofran] 4 mg PO BID PRN PRN Reason: Nausea HYDROcodone/APAP 10-325MG [Donnellson 10-325] 1 tab PO QID PRN PRN Reason: Pain Zinc 50 mg PO DAILY Discontinued DULoxetine HCL [Cymbalta] 60 mg PO DIRECTED Discharge Medication List Albuterol Inhaler [Ventolin Hfa Inhaler] 2 puff INHALATION RT-Q4H PRN 12/25/21 [History] Ascorbic Acid [Vitamin C] 1,000 mg PO DAILY 12/25/21 [History] Gabapentin 300 mg PO BID 12/25/21 [History] HYDROcodone/APAP 10-325MG [Donnellson 10-325] 1 tab PO QID PRN 12/25/21 [History] L.acidoph,Paracasei, B.lactis [Probiotic] 1 cap PO DAILY 12/25/21 [History] Lisinopril-Hctz 20-25 mg [Zestoretic 20-25] 1 tab PO BID 12/25/21 [History] Ondansetron Odt [Zofran ODT] 4 mg PO Q8HR PRN 12/25/21 [History] Ondansetron [Zofran] 4 mg PO BID PRN 12/25/21 [History] Zinc 50 mg PO DAILY 12/25/21 [History] tiZANidine [Zanaflex] 4 mg PO BID PRN 12/25/21 [History] Nicotine 14Mg/24Hr Patch [Habitrol] 1 patch TRANSDERM DAILY 30 Days patch 12/30/21 [Rx] Sertraline [Zoloft] 50 mg PO DAILY 30 Days tab 12/30/21 [Rx] hydrOXYzine pamoate [Vistaril] 50 mg PO HS 30 Days cap 12/30/21 [Rx] Follow up Appointment(s)/Referral(s): [facility] [Outside] - 01/02/22 9:00 am (01/02/2022 @ 11am- [facility] Intake) Edwin Ferguson MD [Primary Care Provider] - 1-2 days Patient Instructions/Handouts: Depression (DC) Activity/Diet/Wound Care/Special Instructions: Activity and diet as tolerated. Avoid the use of street drugs and alcohol. Take all medications as prescribed. When you are in need of refills on your medications please contact your medical provider and/or outpatient psychiatrist to have this done. Please go to scheduled outpatient appointment for aftercare treatment. If symptoms return or become worse, call the crisis line at and/or go to the nearest emergency room for evaluation Discharge Disposition: HOME SELF-CARE
== END 2021-12-30 12:31 | disposition home or self-care (01) | DRG 885 ==
LOC: EC 12:26 → 3MHU 22:27
PROVIDERS: ADMIT Psychiatry & Neurology Psychiatry; ATTEND Psychiatry & Neurology Psychiatry
DX: F33.2 Major depressive disorder, recurrent severe without psychotic features (principal); E87.1 Hypo-osmolality and hyponatremia; R45.851 Suicidal ideations; F10.20 Alcohol dependence, uncomplicated; F17.210 Nicotine dependence, cigarettes, uncomplicated; F41.0 Panic disorder [episodic paroxysmal anxiety]; G47.00 Insomnia, unspecified; I10 Essential (primary) hypertension; J44.9 Chronic obstructive pulmonary disease, unspecified; Z79.899 Other long term (current) drug therapy
CPT/HCPCS: 80053; 80306; 82075; 84443; 85025; 87635; 96372; 99285

== ENCOUNTER → 2022-01-13 | Outpatient (CLI) | payer MEDICARE, OTHER ==
[2022-01-13 18:27] LABS: HCT 38.7 % (37.2-46.3); HGB 12.2 g/dL (12.0-15.0); MCH 30.7 pg (27.0-32.0); MCHC 31.5 g/dL (32.0-37.0); MCV 97.5 fL (80.0-97.0); Mean Platelet Volume 11.5 fL (9.5-12.2); NRBC Per 100 WBC 0 /100 WBCS (0.0-0.0); Platelet Count 148 X 10*3/uL (140-440); RBC 3.97 X 10*6/uL (4.10-5.20); WBC 3.21 X 10*3/uL (4.50-10.00)
[2022-01-13 18:34] LABS: African American GFR (CKD) 111.2 (60.0-200.0); Albumin 3.9 g/dL (3.8-4.9); Albumin/Globulin Ratio 1.35 (1.60-3.17); Anion Gap 11.6 mmol/L (10.00-18.00); BUN/Creat Ratio 18.34 Ratio (12.00-20.00); Blood Urea Nitrogen 12.4 mg/dL (9.0-27.0); Carbon Dioxide 24.6 mmol/L (20.0-27.5); Globulin 2.9 g/dL (1.6-3.3); Non-African American GFR(CKD) 95.9 (60.0-200.0); Potassium 4.2 mmol/L (3.5-5.5); Total Bilirubin 1.1 mg/dL (0.30-1.20); Total Protein 6.8 g/dL (6.2-8.2)
== END | disposition home or self-care (01) ==
LOC: LABWHC1 11:24
PROVIDERS: ATTEND Internal Medicine Gastroenterology
DX: B18.2 Chronic viral hepatitis C (principal)
CPT/HCPCS: 36415; 80053; 85027

== ENCOUNTER 2022-03-08 17:42 | Inpatient (IN) | payer MEDICARE, MEDICAID ==
[2022-03-08] MEDS ORDERED: MAGNESIUM HYDROXIDE 2,400 MG/10 ML CUP PO PRN (19:21)
[2022-03-08] MEDS ORDERED: MAG HYDROX/AL HYDROX/SIMETH 30 ML CUP PO PRN (19:21)
[2022-03-08] MEDS ORDERED: HALOPERIDOL LACTATE 5 MG/ML 1 ML VIAL IM PRN (19:21)
[2022-03-08] MEDS ORDERED: LORazepam 2 MG/ML INJ IM PRN (19:24)
[2022-03-08] MEDS ORDERED: haloperidoL 5 MG TAB PO PRN (19:25)
[2022-03-08] MEDS: LORazepam 1 MG TAB PO PRN (21:53)
[2022-03-08] MEDS: ACETAMINOPHEN TAB 325 MG TAB PO PRN (21:53)
[2022-03-09] MEDS: LORazepam 1 MG TAB PO PRN (07:42)
[2022-03-09] MEDS: ACETAMINOPHEN TAB 325 MG TAB PO PRN ×2 (07:42→14:44)
[2022-03-09] MEDS: NICOTINE 14MG/24HR PATCH TRANSDERM SCH (07:42)
[2022-03-09 11:28] LABS: ALT 42 U/L (4-34); AST 73 U/L (14-36); African American GFR (CKD) >90 (>60 ml/min/1.73 sqM); Albumin 3.6 g/dL (3.5-5.0); Alkaline Phosphatase 99 U/L (38-126); Anion Gap 8 mmol/L; Blood Urea Nitrogen 11 mg/dL (7-17); Calcium 8.9 mg/dL (8.4-10.2); Carbon Dioxide 23 mmol/L (22-30); Chloride 108 mmol/L (98-107); Glucose 104 mg/dL (74-99); Non-African American GFR(CKD) >90 (>60 ml/min/1.73 sqM); Potassium 4.5 mmol/L (3.5-5.1); Sodium 139 mmol/L (137-145); Total Bilirubin 1.7 mg/dL (0.2-1.3); Total Protein 6.7 g/dL (6.3-8.2)
[2022-03-09] MEDS ORDERED: ALBUTEROL HFA INHALER INHALATION PRN (11:51)
[2022-03-09] MEDS ORDERED: tiZANidine 4 MG TAB PO PRN (11:51)
--- NOTE | 2022-03-09 11:52 | P.HP ---
Psychiatric H&P - . H&P Date: 03/09/22 History & Physical: Allergies Allergy/AdvReac Type Severity Reaction Status Date / Time No Known Allergies Allergy Verified 12/25/21 15:57 Vital Signs Temp 97.2 F L 03/08/22 21:21 Pulse 88 03/08/22 21:21 Resp 20 03/08/22 21:21 BP 122/71 03/08/22 21:21 Pulse Ox FiO2 Intake & Output 03/08/22 03/09/22 03/09/22 18:59 06:59 18:59 Weight 62.652 kg 63.7 kg Laboratory Last Values Sodium 139 mmol/L (137-145) 03/09/22 10:14 Potassium 4.5 mmol/L (3.5-5.1) 03/09/22 10:14 Chloride 108 mmol/L (98-107) H 03/09/22 10:14 Carbon Dioxide 23 mmol/L (22-30) 03/09/22 10:14 Anion Gap 8 mmol/L 03/09/22 10:14 BUN 11 mg/dL (7-17) 03/09/22 10:14 Creatinine 0.61 mg/dL (0.52-1.04) 03/09/22 10:14 Est GFR (CKD-EPI)AfAm >90 (>60 ml/min/1.73 sqM) 03/09/22 10:14 Est GFR (CKD-EPI)NonAf >90 (>60 ml/min/1.73 sqM) 03/09/22 10:14 Glucose 104 mg/dL (74-99) H 03/09/22 10:14 Calcium 8.9 mg/dL (8.4-10.2) 03/09/22 10:14 Total Bilirubin 1.7 mg/dL (0.2-1.3) H 03/09/22 10:14 AST 73 U/L (14-36) H 03/09/22 10:14 ALT 42 U/L (4-34) H 03/09/22 10:14 Alkaline Phosphatase 99 U/L (38-126) 03/09/22 10:14 Total Protein 6.7 g/dL (6.3-8.2) 03/09/22 10:14 Albumin 3.6 g/dL (3.5-5.0) 03/09/22 10:14 03/09/22 11:44 This is a psychiatric evaluation on Collin Edwards who is a 61-year-old female and was hospitalized for acute mental status changes Patient remains a poor historian and was rambling about being brought here against her will She states that she needs to go back because she has several cats at home that needs to be fed She denies that she is suicidal or homicidal She continues to ramble and is difficult to redirect until eventually she was able to state that she was brought in due to someone coming at home for a welfare check Patient eventually admitted that she had called them for help She admits that she had taken for Klonopin's of unknown dosage which is not part of her prescription She also admits that she has chronic pain issues with a diagnosis of rheumatoid arthritis chronic degenerative disc disease and osteoporosis She stated that she also has had several back surgeries Patient is also on opiates and gabapentin She denies that she is suicidal or homicidal She does admit that she has had some issues with depression in the past after she lost her daughter in 2001 She states that her last psychiatric hospitalization was in December She states that she goes to a local psychiatric clinic for outpatient follow-up She states that she currently lives alone Mental Status Exam: General Appearance: Patient appears to be stated age, is disheveled, dressed in hospital gown. Patient was sitting on the side of her bed and does not appear to be in any distress Orientation: she is alert, oriented to person, place, Behavior: Patient is anxious. sHe is emotional, no crying Speech: Patient's speech is somewhat pressured and circumstantial Mood/Affect: Mood is anxious Suicidality/Homicidality: Patient denies having any suicidal or homicidal ideation intent or plan. Perceptions: Patient denies any visual hallucinations and denies any auditory hallucinations. Though content: There is no evidence of paranoid delusional thought content, although patient comes across as rather projective and seems to rationalize and intellectualize. Thought process: Projective Low self-esteem and confidence Memory and concentration: Grossly intact for the purposes of this session. Judgment and insight: Impaired an patient seems to be minimizing the current issues Problem-solving skills are concrete Assessment: Adjustment disorder with mixed emotional features Mood disorder unspecified Rule out benzodiazepine use disorder Rule out personality disorder Plan: Plan: -Patient continues to meet criteria for inpatient psychiatric admission for symptom stabilization and safety. Patient has signed adult voluntary form and medication consent and was placed in patient's chart. -Medications: Continue home medications as prescribed that includes Zanaflex, Vistaril, zinc, Zoloft 50 mg daily Zofran when necessary nicotine patch, as of November, hydrocodone, gabapentin vitamin C supplement and albuterol inhaler -When necessary Ativan and Haldol for agitation/aggression. -NRT - nicotine patch -SW on board for discharge planning. Encouraged the patient to participate in milieu. Approximate the stay would be 2-3 days[ Syed Vang M.D. 03/09/2022]
[2022-03-09 12:01] LABS: Basophils % (A) 1 %; Eosinophils # (A) 0.4 k/uL (0-0.7); Eosinophils % (A) 7 %; HGB 12.5 gm/dL (11.4-16.0); Lymphocytes # (A) 1.3 k/uL (1.0-4.8); Lymphocytes % (A) 25 %; MCH 30.9 pg (25.0-35.0); MCHC 32.9 g/dL (31.0-37.0); MCV 94.1 fL (80.0-100.0); Monocytes # (A) 0.3 k/uL (0-1.0); Monocytes % (A) 5 %; Neutrophils # (A) 3.2 k/uL (1.3-7.7); Neutrophils % (A) 61 %; Platelet Count 159 k/uL (150-450); RBC 4.04 m/uL (3.80-5.40); RDW 14.4 % (11.5-15.5); WBC 5.3 k/uL (3.8-10.6)
[2022-03-09] MEDS: GABAPENTIN 300 MG CAP PO SCH ×2 (12:01→20:35)
[2022-03-09] MEDS: HYDROcodone/APAP 10-325MG 1 EACH TAB PO PRN ×2 (12:01→18:10)
[2022-03-09 17:30] LABS: Chol/HDL Ratio 2.48 Ratio; LDL Cholesterol,Calculated 39.4 mg/dL (0.0-131.0)
[2022-03-09] MEDS: hydrOXYzine pamoate 25 MG CAP PO SCH (20:34)
[2022-03-09] MEDS: LISINOPRIL-HCTZ 20-25 MG 1 EACH TAB PO SCH (20:35)
[2022-03-10] MEDS: HYDROcodone/APAP 10-325MG 1 EACH TAB PO PRN ×2 (04:19→14:14)
[2022-03-10 04:22] VITALS: TEMP 97
--- NOTE | 2022-03-10 07:57 | CONS ---
CONSULTATION CHIEF COMPLAINT: Major depression. HISTORY OF PRESENT ILLNESS: This is another admission for this 61-year-old female who has struggled with depression for years. She has been trying to stabilize herself over the last year or 2 and that sometimes she does better than others. She became extremely depressed and presented for admission. REVIEW OF SYSTEMS: She denies any headaches, chest pain, abdominal pain, etc. Past medical history, family history and personal and social histories can be found in her H and P. PHYSICAL EXAMINATION: Blood pressure is 132/75 with a pulse of 74 and respirations were normal. She is afebrile. In general, she appeared to be very depressed. Skin was normal. Head, ears, eyes, nose, mouth and throat were normal. Chest is clear. Cardiac exam is normal. Abdomen: Soft. Extremities normal. IMPRESSION: 1. Major depression. 2. Nicotine abuse. 3. Low back pain. RECOMMENDATIONS: None at this time. She is very worried about a pet cat that she has, it is in her apartment and she has no one to take care of it. Thank you respectfully for this consultation. MMODL / IJN: [id number] /
[2022-03-10] MEDS: SERTRALINE 50 MG TAB PO SCH (09:10)
[2022-03-10] MEDS: NICOTINE 14MG/24HR PATCH TRANSDERM SCH ×2 (09:10→09:11)
[2022-03-10] MEDS: ASCORBIC ACID 500 MG TAB PO SCH (09:10)
[2022-03-10] MEDS: LISINOPRIL-HCTZ 20-25 MG 1 EACH TAB PO SCH ×2 (09:11→20:36)
[2022-03-10] MEDS: GABAPENTIN 300 MG CAP PO SCH ×2 (09:13→20:35)
[2022-03-10 12:38] VITALS: RESP 16
--- NOTE | 2022-03-10 13:37 | P.PN ---
Progress Note - Text Progress Note Date: 03/10/22 Interval History: Patient was seen resting in bed and was directable and wished to speak with a provider in her room. She reports that she is here in the hospital because she overtook her Klonopin. She reports that she took 4-5 extra Klonopin because of elevated anxiety. She is expressing no suicidal or homicidal ideation, intention, and/or plan. She is expressing strong desire for discharge so that she may be able to take care of her cats. She is also primarily focused on her pain management. Despite having low blood pressure, the patient has been requesting narcotic medications. She reports hip pain and back pain however displays an ability to ambulate to the medicine window to request these medications. She is otherwise not reporting any auditory or visual hallucinations. She is not reporting any other psychiatric pathology at this time. This provider tried to educate the patient on polypharmacy and the concerns for her medication regimen which includes Zanaflex, gabapentin, hydrocodone, and Klonopin however the patient appears to be pre-contemplative on changing her medication regimen. Mental Status Exam: General Appearance: Patient appears to be stated age is alert, directable, and cooperative. Behavior: Patient is lying down in bed without any agitated behavior. She also appears to ambulate without any antalgic gait. Speech: Patient's speech is fluent and nonpressured. Mood/Affect: Mood is "I'm okay just in pain." Affect is euthymic and demanding. Suicidality/Homicidality: Patient denies having any suicidal or homicidal ideation intent or plan. Perceptions: Patient denies any visual hallucinations and denies any auditory hallucinations Though content/process: Strong fixation on her medication management, in particular her narcotics. Memory and concentration: AOX3, grossly intact for the purposes of this session Judgment and insight: Poor Vital Signs Temp 97.0 F L 03/10/22 04:22 Pulse 72 03/10/22 12:33 Resp 16 03/10/22 12:33 BP 85/72 03/10/22 12:33 Pulse Ox 96 03/10/22 04:22 FiO2 Intake & Output 03/09/22 03/10/22 03/10/22 18:59 06:59 18:59 Weight 63.7 kg Laboratory Results - Last 24 Hours 03/09/22 03/09/22 10:14 10:[address] Glu mg/dL 99 Hemoglobin A1c 5.1 Triglycerides 101.00 Cholesterol 100.00 LDL Cholesterol, Calc 39.4 VLDL Cholesterol, Calc 20.20 HDL Cholesterol 40.40 Cholesterol/HDL Ratio 2.48 Assessment Adjustment disorder with mixed emotional features Benzodiazepine use disorder Chronic opiate use Plan: -Patient continues to meet criteria for inpatient psychiatric admission for symptom stabilization and safety. Patient has signed adult voluntary form and medication consent and was placed in patient's chart. -Medications: Continue Zoloft 50 mg by mouth daily for depression/anxiety Gabapentin 300 mg by mouth twice a day for off label use for anxiety as well as for neuropathic pain -When necessary Ativan and Haldol for agitation/aggression. -NRT - nicotine patch -SW on board for discharge planning. Encouraged the patient to participate in milieu.
[2022-03-10] MEDS: ACETAMINOPHEN TAB 325 MG TAB PO PRN (16:34)
[2022-03-10] MEDS: LORazepam 1 MG TAB PO PRN (16:38)
[2022-03-10] MEDS ORDERED: LORazepam 1 MG/0.5 ML VIAL IM PRN (18:43)
[2022-03-10 20:02] LABS: Appearance,Urine Clear (Clear); Bilirubin,Urine Negative (Negative); Blood,Urine Negative (Negative); Color,Urine Yellow; Glucose,Urine (UA) Negative (Negative); Hyaline Casts,Urine 1 /lpf (0-2); Ketones,Urine Negative (Negative); Leukocyte Esterase,Urine Moderate (Negative); Mucus,Urine Rare /hpf; Nitrite,Urine Negative (Negative); PH, Urine 5.5 (5.0-8.0); Protein,Urine Negative (Negative); RBC,Urine <1 /hpf (0-5); Squamous Epithelial Cell,Urine <1 /hpf (0-4); WBC,Urine 4 /hpf (0-5)
[2022-03-10] MEDS: hydrOXYzine pamoate 25 MG CAP PO SCH (20:35)
[2022-03-11 04:18] LABS: Urine Alcohol Negative (Negative); Urine Barbiturate Negative (Negative); Urine Cocaine Negative (Negative); Urine Methadone Negative (Negative); Urine Opiates Positive (Negative); Urine Phencyclidine Negative (Negative)
[2022-03-11] MEDS: GABAPENTIN 300 MG CAP PO SCH (08:04)
[2022-03-11] MEDS: ASCORBIC ACID 500 MG TAB PO SCH (08:04)
[2022-03-11] MEDS: LISINOPRIL-HCTZ 20-25 MG 1 EACH TAB PO SCH (08:05)
[2022-03-11] MEDS: SERTRALINE 50 MG TAB PO SCH ×2 (08:05→08:07)
[2022-03-11] MEDS: HYDROcodone/APAP 10-325MG 1 EACH TAB PO PRN (08:06)
[2022-03-11] MEDS: NICOTINE 14MG/24HR PATCH TRANSDERM SCH ×2 (08:08)
[2022-03-11 08:09] VITALS: BP 148/81; PULSE 98
--- NOTE | 2022-03-11 08:10 | PN ---
PROGRESS NOTE CHIEF COMPLAINT: Major depression. HISTORY OF PRESENT ILLNESS: In reviewing this patient's labs, her liver function studies are elevated, and this will be addressed. PHYSICAL EXAMINATION: Physical exam is unchanged. IMPRESSION: Elevated liver function studies. PLAN: Viral hepatitis antibody profile. MMODL / IJN: [id number] /
[2022-03-11 09:42] LABS: ALT 49 U/L (4-34); AST 80 U/L (14-36)
[2022-03-11] MEDS: ACETAMINOPHEN TAB 325 MG TAB PO PRN (11:18)
--- NOTE | 2022-03-11 13:59 | P.DS ---
Providers Date of admission: 03/08/22 21:07 Expected date of discharge: 03/11/22 Attending physician: Tigre Fraser MD Consults: 03/08/22 19:21 Consult Physician Routine Consulting Provider: Edwin Ferguson Consult Reason/Comments: H and P Do you want consulting provider notified?: Yes Primary care physician: Stated None - Discharge Diagnosis(es) (1) Adjustment disorder with mixed disturbance of emotions and conduct Status: Acute Priority: High (2) Severe benzodiazepine use disorder Status: Acute Priority: High (3) Chronic prescription opiate use Status: Chronic Priority: Medium Hospital Course: Admission HPI: Initial psychiatric evaluation was completed by Dr. Vang on 03/09/2022 who wrote: "This is a psychiatric evaluation on Collin Edwards who is a 61-year-old female and was hospitalized for acute mental status changes Patient remains a poor historian and was rambling about being brought here against her will She states that she needs to go back because she has several cats at home that needs to be fed She denies that she is suicidal or homicidal She continues to ramble and is difficult to redirect until eventually she was able to state that she was brought in due to someone coming at home for a welfare check Patient eventually admitted that she had called them for help She admits that she had taken for Klonopin's of unknown dosage which is not part of her prescription She also admits that she has chronic pain issues with a diagnosis of rheumatoid arthritis chronic degenerative disc disease and osteoporosis She stated that she also has had several back surgeries Patient is also on opiates and gabapentin She denies that she is suicidal or homicidal She does admit that she has had some issues with depression in the past after she lost her daughter in 2001 She states that her last psychiatric hospitalization was in December She states that she goes to a local psychiatric clinic for outpatient follow-up She states that she currently lives alone" Hospital course: Upon admission to the unit patient was initially noted to be disheveled, emotional, and anxious. Patient was however directable and agreeable to commence treatment. Patient got along well with other patients on the unit and followed unit protocol. Patient was compliant with the medications and denied any side effects throughout hospital course. Patient was started on Zoloft for management of depression/anxiety. Patient spoke of her stressors and engaged in therapy both group and individual. Patient was also seen by medical team for history and physical exam. Over the course of the hospitalization, the patient was counseled heavily on her medication regimen as she has been on a regimen that is detrimental to her physical and mental well-being which include Zanaflex, hydrocodone, Klonopin, and gabapentin. The patient has been primarily fixated on her medications and her request for narcosis were made constantly throughout this hospitalization despite her being hypotensive at times. The patient was counseled at length on the importance of medication adherence and appropriately taking her prescribed medications. She was also informed that she should no longer be prescribed any Klonopin as she is receiving narcotic medications for pain management. The patient maintains that she overdosed on the Klonopin with no intention to take her life but rather, to help alleviate her anxiety. On the day of discharge, the patient is more amenable to the recommendations of this provider regarding her polypharmacy. She is currently denying any suicidal or homicidal ideation, intent, and/or plan. She is not reporting any auditory or visual hallucinations. She denies any paranoia or other delusions. The patient is future and goal oriented with plans to take care of her cats. The patient was counseled and reports medication has appropriate outpatient follow-up. She is also counseled on the dangers of mixing benzodiazepine medications with narcotics and muscle relaxers. Prior to discharge, family meeting will be arranged by social media sr strategy manager to answer questions and ensure safety. Mental status exam: General Appearance: Patient appears to be stated age is alert, pleasant, and cooperative. Patient is in no acute distress and has fair hygiene and grooming Behavior: Patient is calmly seated without any agitated behavior. Speech: Patient's speech is fluent and nonpressured. Mood/Affect: Patient reports their mood is "much better", affect is congruent and euthymic. Suicidality/Homicidality: Patient denies having any suicidal or homicidal ideation intent or plan. Perceptions: Patient denies any auditory or visual hallucinations. Though content/process: There is no evidence of any delusional thought content and thought process is linear and goal-directed. She is future oriented. Memory and concentration: AOX3, grossly intact for the purposes of this session. Can spell "WORLD" backwards correctly. Judgment and insight: Improved with guarded prognosis Impression: Adjustment disorder with mixed emotional features Benzodiazepine use disorder Chronic opiate use Plan: -Continue with discharge today as patient has improved and stabilized psychiatrically and is not currently an imminent threat to herself and/or others. Patient will remain at chronically elevated risk for harm to self and/or others due to her substance abuse. -Continue medications: Zoloft 50 mg by mouth daily for depression/anxiety Gabapentin 200 mg by mouth twice a day for a off label use for anxiety and for neuropathic pain. Recommend discontinuation of Klonopin. The patient's outpatient provider should not continue any prescription of Klonopin or manage her psychiatric medications. It is recommended that her psychiatric medications are solely managed by outpatient psychiatry. -Patient was counseled on the need for medication compliance and appropriate follow-up at mental health and also primary care for medical issues. Patient verbalized understanding and agreed. -Social work to arrange for and conduct family meeting to ensure safety upon discharge and answer any questions/concerns. Social work also to arrange for patients follow up appointments [facility] for psychiatric care along with follow up with primary care provider. -Patient counseled on abstaining from recreational drugs and marijuana and alcohol. Was informed/educated on the adverse effects on their physical and mental health. Patient verbally agreed and understood. Patient was offered substance abuse treatment however declined at this time. -Patient was instructed to return to the hospital or seek immediate medical care if their psychiatric or medical symptoms do worsen or reoccur. -Psychoeducation and supportive therapy provided to patient. Risks and benefits of pharmacological treatment versus the risks and benefits of nontreatment weight and discussed. Informed consent discussion held. Common side effects of psychotropics discussed such as, but not limited to headache, GI disturbance, sexual dysfunction, movement disorders, sedation, and orthostatic hypotension. Life threatening and blackbox warnings of prescribed medications also discussed. Potential risks of operating a vehicle or heavy machinery discussed with patient at length. Advised on importance of compliance and a reliable and respo nsible manner. Patient advised to review FDA consumer labeling of all medications prior to taking. Patient verbalized understanding of potential risks, and agrees with current treatment plan. Patient advised to medically contact physician/emergency personnel if any acute changes in condition occur. Patient Condition at Discharge: Stable Plan - Discharge Summary Discharge Rx Participant: No New Discharge Prescriptions: New Sertraline [Zoloft] 50 mg PO DAILY 30 Days tab hydrOXYzine pamoate [Vistaril] 50 mg PO HS 30 Days cap Continue L.acidoph,Paracasei, B.lactis [Probiotic] 1 cap PO DAILY Ascorbic Acid [Vitamin C] 1,000 mg PO DAILY Lisinopril-Hctz 20-25 mg [Zestoretic 20-25] 1 tab PO BID Gabapentin 300 mg PO BID Albuterol Inhaler [Ventolin Hfa Inhaler] 2 puff INHALATION RT-Q4H PRN PRN Reason: Shortness Of Breath Ondansetron [Zofran] 4 mg PO BID PRN PRN Reason: Nausea HYDROcodone/APAP 10-325MG [Clare 10-325] 1 tab PO QID PRN PRN Reason: Pain Zinc 50 mg PO DAILY Discontinued tiZANidine [Zanaflex] 4 mg PO BID PRN PRN Reason: Muscle Pain Ondansetron Odt [Zofran ODT] 4 mg PO Q8HR PRN PRN Reason: Nausea hydrOXYzine pamoate [Vistaril] 50 mg PO HS 30 Days cap Nicotine 14Mg/24Hr Patch [Habitrol] 1 patch TRANSDERM DAILY 30 Days patch Sertraline [Zoloft] 50 mg PO DAILY 30 Days tab Discharge Medication List Albuterol Inhaler [Ventolin Hfa Inhaler] 2 puff INHALATION RT-Q4H PRN 12/25/21 [History] Ascorbic Acid [Vitamin C] 1,000 mg PO DAILY 12/25/21 [History] Gabapentin 300 mg PO BID 12/25/21 [History] HYDROcodone/APAP 10-325MG [Clare 10-325] 1 tab PO QID PRN 12/25/21 [History] L.acidoph,Paracasei, B.lactis [Probiotic] 1 cap PO DAILY 12/25/21 [History] Lisinopril-Hctz 20-25 mg [Zestoretic 20-25] 1 tab PO BID 12/25/21 [History] Ondansetron [Zofran] 4 mg PO BID PRN 12/25/21 [History] Zinc 50 mg PO DAILY 12/25/21 [History] Sertraline [Zoloft] 50 mg PO DAILY 30 Days tab 03/11/22 [Rx] hydrOXYzine pamoate [Vistaril] 50 mg PO HS 30 Days cap 03/11/22 [Rx] Follow up Appointment(s)/Referral(s): [facility] [Outside] - 03/20/22 12:00 pm ([facility] [NON-STAFF] - 1 Week Patient Instructions/Handouts: How to Stop Smoking (DC), Depression (DC) Activity/Diet/Wound Care/Special Instructions: Avoid the use of street drugs and alcohol. Take all prescriptions as prescribed. When you are in need of refills on your medications, please contact your medical provider and/or outpatient psychiatrist to have this done. Please go to scheduled outpatient appointment for aftercare treatment. If symptoms return or become worse, call the crisis line at and/or go to the nearest emergency room for evaluation. Discharge Disposition: HOME SELF-CARE
== END 2022-03-11 12:17 | disposition home or self-care (01) | DRG 882 ==
LOC: 3MHU 21:07
PROVIDERS: ADMIT Psychiatry & Neurology Psychiatry; ATTEND Psychiatry & Neurology Psychiatry
DX: F43.25 Adjustment disorder with mixed disturbance of emotions and conduct (principal); F13.10 Sedative, hypnotic or anxiolytic abuse, uncomplicated; Z71.51 Drug abuse counseling and surveillance of drug abuser; F32.9 Major depressive disorder, single episode, unspecified; G89.29 Other chronic pain; F41.9 Anxiety disorder, unspecified; F17.210 Nicotine dependence, cigarettes, uncomplicated; M06.9 Rheumatoid arthritis, unspecified; M54.50 Low back pain, unspecified; M81.0 Age-related osteoporosis without current pathological fracture; Z76.5 Malingerer [conscious simulation]; T42.4X2A Poisoning by benzodiazepines, intentional self-harm, initial encounter; Z79.891 Long term (current) use of opiate analgesic; Z79.899 Other long term (current) drug therapy; Z60.2 Problems related to living alone; Z63.4 Disappearance and death of family member; Z71.6 Tobacco abuse counseling; Z28.21 Immunization not carried out because of patient refusal
CPT/HCPCS: 80053; 80061; 80306; 81001; 81025; 83036; 84443; 84450; 84460; 85025

== ENCOUNTER 2022-06-13 12:33 | Observation (INO) | payer MEDICARE, OTHER ==
[2022-06-13] MEDS ORDERED: SODIUM CHLORIDE 0.9% 1,000 ML IV STA (12:53)
[2022-06-13] MEDS ORDERED: ACETAMINOPHEN TAB 325 MG TAB PO STA (12:53)
--- NOTE | 2022-06-13 12:57 | ED ---
General Adult HPI - General Chief complaint: Dizziness Stated complaint: General weakness Time Seen by Provider: 06/13/22 12:42 Source: patient, EMS, RN notes reviewed Mode of arrival: EMS Limitations: no limitations - History of Present Illness Initial comments: Patient is a pleasant 62-year-old female presenting to the emergency department with concerns with general weakness. Onset of symptoms was over a week ago. Patient has been fatigued. Decreased appetite and decreased oral intake. No animal loose stools. No abdominal pain. No chest pain. No isolated area of weakness. Patient has not been eating well. Patient [place] had to sleep in the car several times and was in a bad environment that she was not comfortable with. No cough or upper respiratory symptoms. No chest pain or dyspnea. Patient has had approximately 5 or 6 near- syncopal episodes over the past week. - Related Data Home Medications Medication Instructions Recorded Confirmed Albuterol Inhaler [Ventolin Hfa 2 puff INHALATION RT-Q4H PRN 12/25/21 12/25/21 Inhaler] Ascorbic Acid [Vitamin C] 1,000 mg PO DAILY 12/25/21 12/25/21 Gabapentin 300 mg PO BID 12/25/21 12/25/21 HYDROcodone/APAP 10-325MG [[place] 1 tab PO QID PRN 12/25/21 12/25/21 10-325] L.acidoph,Paracasei, B.lactis 1 cap PO DAILY 12/25/21 12/25/21 [Probiotic] Lisinopril-Hctz 20-25 mg 1 tab PO BID 12/25/21 12/25/21 [Zestoretic 20-25] Ondansetron [Zofran] 4 mg PO BID PRN 12/25/21 12/25/21 Zinc 50 mg PO DAILY 12/25/21 12/25/21 Previous Rx's Medication Instructions Recorded Sertraline [Zoloft] 50 mg PO DAILY 30 Days tab 03/11/22 hydrOXYzine pamoate [Vistaril] 50 mg PO HS 30 Days cap 03/11/22 Allergies Allergy/AdvReac Type Severity Reaction Status Date / Time No Known Allergies Allergy Verified 12/25/21 15:57 Review of Systems ROS Statement: Those systems with pertinent positive or pertinent negative responses have been documented in the HPI. ROS Other: All systems not noted in ROS Statement are negative. Constitutional: Denies: fever Eyes: Denies: eye pain ENT: Denies: ear pain Respiratory: Denies: cough Cardiovascular: Denies: chest pain Endocrine: Reports: fatigue Gastrointestinal: Reports: as per HPI Genitourinary: Denies: dysuria Musculoskeletal: Denies: back pain Skin: Denies: rash Neurological: Denies: headache Past Medical History Past Medical History: COPD, Hypertension Additional Past Medical History / Comment(s): RA, arthritis DDD, siatic nerve pain, Left leg weakness. Lower back pain. History of Any Multi-Drug Resistant Organisms: None Reported Past Surgical History: Back Surgery, Cholecystectomy Past Anesthesia/Blood Transfusion Reactions: No Reported Reaction Past Psychological History: Anxiety, Bipolar, Depression, Panic Disorder Smoking Status: Current every day smoker Past Alcohol Use History: None Reported Past Drug Use History: None Reported General Exam Limitations: no limitations General appearance: alert, in no apparent distress Head exam: Present: atraumatic Eye exam: Present: normal appearance, PERRL ENT exam: Present: normal oropharynx Neck exam: Present: normal inspection Respiratory exam: Present: normal lung sounds bilaterally Cardiovascular Exam: Present: bradycardia GI/Abdominal exam: Present: soft. Absent: distended, tenderness, pulsatile mass Extremities exam: Present: normal inspection Neurological exam: Present: alert, oriented X3, CN II-XII intact. Absent: motor sensory deficit Psychiatric exam: Present: normal affect, normal mood Skin exam: Present: normal color Course Vital Signs 06/13/22 06/13/22 06/13/22 12:43 12:47 14:07 Temperature 98.2 F 98.2 F Pulse Rate 54 L 53 L 68 Respiratory 16 16 16 Rate Blood Pressure 96/55 96/55 115/62 O2 Sat by Pulse 100 100 100 Oximetry - Reevaluation(s) Reevaluation #1: 06/13/22 15:09 Repeat EKG shows sinus bradycardia 58. NM 155. QRS 86. QT 473. QTC 469. Normal axis. Normal QRS. No acute ST change. EKG Findings - EKG Comments: EKG Findings:: Sinus bradycardia rate 53. NM 149. QRS 88. QT 539. QTc 521. Normal axis. Normal QRS. No acute ST change. Medical Decision Making - Medical Decision Making Patient reevaluated and resting comfortably in bed. Heart rate and blood pressure have significantly improved. Case was discussed with Dr. Ferguson, who will admit his patient. QT prolongation improved on repeat EKG. - Lab Data Result diagrams: 06/13/22 13:36 06/13/22 13:36 Lab Results 06/13/22 06/13/22 06/13/22 Range/Units 12:54 12:54 13:36 WBC 5.0 (3.8-10.6) k/uL RBC 3.90 (3.80-5.40) m/uL Hgb 12.3 (11.4-16.0) gm/dL Hct 35.6 (34.0-46.0) % MCV 91.4 (80.0-100.0) fL MCH 31.5 (25.0-35.0) pg MCHC 34.4 (31.0-37.0) g/dL RDW 12.8 (11.5-15.5) % Plt Count 116 L (150-450) k/uL MPV 7.9 Neutrophils % 58 % Lymphocytes % 32 % Monocytes % 6 % Eosinophils % 2 % Basophils % 0 % Neutrophils # 2.9 (1.3-7.7) k/uL Lymphocytes # 1.6 (1.0-4.8) k/uL Monocytes # 0.3 (0-1.0) k/uL Eosinophils # 0.1 (0-0.7) k/uL Basophils # 0.0 (0-0.2) k/uL PT (9.0-12.0) sec INR (<1.2) APTT (22.0-30.0) sec Sodium (137-145) mmol/L Potassium (3.5-5.1) mmol/L Chloride (98-107) mmol/L Carbon Dioxide (22-30) mmol/L Anion Gap mmol/L BUN (7-17) mg/dL Creatinine (0.52-1.04) mg/dL Est GFR (CKD-EPI)AfAm (>60 ml/min/1.73 sqM) Est GFR (CKD-EPI)NonAf (>60 ml/min/1.73 sqM) Glucose (74-99) mg/dL Plasma Lactic Acid Christopher (0.7-2.0) mmol/L Calcium (8.4-10.2) mg/dL Phosphorus (2.5-4.5) mg/dL Magnesium (1.6-2.3) mg/dL Total Bilirubin (0.2-1.3) mg/dL AST (14-36) U/L ALT (4-34) U/L Alkaline Phosphatase (38-126) U/L Troponin I (0.000-0.034) ng/mL Total Protein (6.3-8.2) g/dL Albumin (3.5-5.0) g/dL TSH (0.465-4.680) mIU/L Urine Color Urine Appearance (Clear) Urine pH (5.0-8.0) Ur Specific Sheridan (1.001-1.035) Urine Protein (Negative) Urine Glucose (UA) (Negative) Urine Ketones (Negative) Urine Blood (Negative) Urine Nitrite (Negative) Urine Bilirubin (Negative) Urine Urobilinogen (<2.0) mg/dL Ur Leukocyte Esterase (Negative) Urine RBC (0-5) /hpf Urine WBC (0-5) /hpf Ur Squamous Epith Cells (0-4) /hpf Hyaline Casts (0-2) /lpf Urine Mucus (None) /hpf Coronavirus (PCR) Not Detected (Not Detectd) Influenza Type A RNA Not Detected (Not Detectd) Influenza Type B (PCR) Not Detected (Not Detectd) 06/13/22 06/13/22 06/13/22 Range/Units 13:36 13:36 13:36 WBC (3.8-10.6) k/uL RBC (3.80-5.40) m/uL Hgb (11.4-16.0) gm/dL Hct (34.0-46.0) % MCV (80.0-100.0) fL MCH (25.0-35.0) pg MCHC (31.0-37.0) g/dL RDW (11.5-15.5) % Plt Count (150-450) k/uL MPV Neutrophils % % Lymphocytes % % Monocytes % % Eosinophils % % Basophils % % Neutrophils # (1.3-7.7) k/uL Lymphocytes # (1.0-4.8) k/uL Monocytes # (0-1.0) k/uL Eosinophils # (0-0.7) k/uL Basophils # (0-0.2) k/uL PT 11.2 (9.0-12.0) sec INR 1.0 (<1.2) APTT 25.8 (22.0-30.0) sec Sodium 131 L (137-145) mmol/L Potassium 3.2 L (3.5-5.1) mmol/L Chloride 100 (98-107) mmol/L Carbon Dioxide 21 L (22-30) mmol/L Anion Gap 10 mmol/L BUN 15 (7-17) mg/dL Creatinine 0.61 (0.52-1.04) mg/dL Est GFR (CKD-EPI)AfAm >90 (>60 ml/min/1.73 sqM) Est GFR (CKD-EPI)NonAf >90 (>60 ml/min/1.73 sqM) Glucose 94 (74-99) mg/dL Plasma Lactic Acid Christopher 1.6 (0.7-2.0) mmol/L Calcium 7.6 L (8.4-10.2) mg/dL Phosphorus 3.4 (2.5-4.5) mg/dL Magnesium 1.5 L (1.6-2.3) mg/dL Total Bilirubin 0.7 (0.2-1.3) mg/dL AST 37 H (14-36) U/L ALT 29 (4-34) U/L Alkaline Phosphatase 112 (38-126) U/L Troponin I (0.000-0.034) ng/mL Total Protein 6.3 (6.3-8.2) g/dL Albumin 3.3 L (3.5-5.0) g/dL TSH <0.015 L (0.465-4.680) mIU/L Urine Color Urine Appearance (Clear) Urine pH (5.0-8.0) Ur Specific Sheridan (1.001-1.035) Urine Protein (Negative) Urine Glucose (UA) (Negative) Urine Ketones (Negative) Urine Blood (Negative) Urine Nitrite (Negative) Urine Bilirubin (Negative) Urine Urobilinogen (<2.0) mg/dL Ur Leukocyte Esterase (Negative) Urine RBC (0-5) /hpf Urine WBC (0-5) /hpf Ur Squamous Epith Cells (0-4) /hpf Hyaline Casts (0-2) /lpf Urine Mucus (None) /hpf Coronavirus (PCR) (Not Detectd) Influenza Type A RNA (Not Detectd) Influenza Type B (PCR) (Not Detectd) 06/13/22 06/13/22 Range/Units 13:36 13:39 WBC (3.8-10.6) k/uL RBC (3.80-5.40) m/uL Hgb (11.4-16.0) gm/dL Hct (34.0-46.0) % MCV (80.0-100.0) fL MCH (25.0-35.0) pg MCHC (31.0-37.0) g/dL RDW (11.5-15.5) % Plt Count (150-450) k/uL MPV Neutrophils % % Lymphocytes % % Monocytes % % Eosinophils % % Basophils % % Neutrophils # (1.3-7.7) k/uL Lymphocytes # (1.0-4.8) k/uL Monocytes # (0-1.0) k/uL Eosinophils # (0-0.7) k/uL Basophils # (0-0.2) k/uL PT (9.0-12.0) sec INR (<1.2) APTT (22.0-30.0) sec Sodium (137-145) mmol/L Potassium (3.5-5.1) mmol/L Chloride (98-107) mmol/L Carbon Dioxide (22-30) mmol/L Anion Gap mmol/L BUN (7-17) mg/dL Creatinine (0.52-1.04) mg/dL Est GFR (CKD-EPI)AfAm (>60 ml/min/1.73 sqM) Est GFR (CKD-EPI)NonAf (>60 ml/min/1.73 sqM) Glucose (74-99) mg/dL Plasma Lactic Acid Christopher (0.7-2.0) mmol/L Calcium (8.4-10.2) mg/dL Phosphorus (2.5-4.5) mg/dL Magnesium (1.6-2.3) mg/dL Total Bilirubin (0.2-1.3) mg/dL AST (14-36) U/L ALT (4-34) U/L Alkaline Phosphatase (38-126) U/L Troponin I <0.012 (0.000-0.034) ng/mL Total Protein (6.3-8.2) g/dL Albumin (3.5-5.0) g/dL TSH (0.465-4.680) mIU/L Urine Color Yellow Urine Appearance Clear (Clear) Urine pH 5.5 (5.0-8.0) Ur Specific Sheridan 1.011 (1.001-1.035) Urine Protein Negative (Negative) Urine Glucose (UA) Negative (Negative) Urine Ketones Negative (Negative) Urine Blood Negative (Negative) Urine Nitrite Negative (Negative) Urine Bilirubin Negative (Negative) Urine Urobilinogen <2.0 (<2.0) mg/dL Ur Leukocyte Esterase Moderate H (Negative) Urine RBC 1 (0-5) /hpf Urine WBC 2 (0-5) /hpf Ur Squamous Epith Cells 1 (0-4) /hpf Hyaline Casts 1 (0-2) /lpf Urine Mucus Rare H (None) /hpf Coronavirus (PCR) (Not Detectd) Influenza Type A RNA (Not Detectd) Influenza Type B (PCR) (Not Detectd) - Radiology Data Radiology results: image reviewed (Chest and abdominal x-ray shows no acute process) Disposition Clinical Impression: Near syncope, Hypotension Disposition: ADMITTED IP TO THIS HOSP Is patient prescribed a controlled substance at d/c from ED?: No Referrals: None,Stated [REFERRING] - 1-2 days Time of Disposition: 16:05
--- NOTE | 2022-06-13 13:24 | XR ---
EXAMINATION TYPE: XR chest 2V DATE OF EXAM: 06/13/2022 COMPARISON: None HISTORY: 62 year-old female with a generalized weakness and hypotension TECHNIQUE: AP and lateral views FINDINGS: Heart normal size. Aorta and pulmonary vasculature within normal limits. No consolidation or pleural effusion. IMPRESSION: No acute cardiopulmonary process.
--- NOTE | 2022-06-13 13:27 | XR ---
EXAMINATION TYPE: XR abdomen 1V DATE OF EXAM: 06/13/2022 Comparison: None Clinical History: 62 year-old female with a abdominal pain, nausea, vomiting, diarrhea Findings: Levoconvex scoliosis. There is L3-L5 posterior and interbody fusion changes with corresponding leif ctomies. Cholecystectomy clips and additional surgical clips in the midline pelvis. Midline and left- sided pelvic phleboliths. Mild stool burden. No dilated small bowel or differential air-fluid levels. Air extends distally to the rectum. No evidence for free intraperitoneal air. Impression: No evidence for free air or bowel obstruction. Mild stool burden. Levoconvex scoliosis and previous m id to lower lumbar fusion.
[2022-06-13 13:45] LABS: Basophils % (A) 0 %; Eosinophils # (A) 0.1 k/uL (0-0.7); Eosinophils % (A) 2 %; HCT 35.6 % (34.0-46.0); HGB 12.3 gm/dL (11.4-16.0); Lymphocytes # (A) 1.6 k/uL (1.0-4.8); Lymphocytes % (A) 32 %; MCH 31.5 pg (25.0-35.0); MCHC 34.4 g/dL (31.0-37.0); MCV 91.4 fL (80.0-100.0); Mean Platelet Volume 7.9; Monocytes # (A) 0.3 k/uL (0-1.0); Monocytes % (A) 6 %; Neutrophils # (A) 2.9 k/uL (1.3-7.7); Neutrophils % (A) 58 %; Platelet Count 116 k/uL (150-450); RDW 12.8 % (11.5-15.5)
[2022-06-13] MEDS ORDERED: MORPHINE SULFATE 4 MG/ML SYRINGE IVP STA (13:46)
[2022-06-13 13:58] LABS: ALT 29 U/L (4-34); AST 37 U/L (14-36); African American GFR (CKD) >90 (>60 ml/min/1.73 sqM); Albumin 3.3 g/dL (3.5-5.0); Alkaline Phosphatase 112 U/L (38-126); Anion Gap 10 mmol/L; Blood Urea Nitrogen 15 mg/dL (7-17); Calcium 7.6 mg/dL (8.4-10.2); Carbon Dioxide 21 mmol/L (22-30); Chloride 100 mmol/L (98-107); Glucose 94 mg/dL (74-99); Magnesium 1.5 mg/dL (1.6-2.3); Non-African American GFR(CKD) >90 (>60 ml/min/1.73 sqM); Phosphorus 3.4 mg/dL (2.5-4.5); Potassium 3.2 mmol/L (3.5-5.1); Sodium 131 mmol/L (137-145); Total Bilirubin 0.7 mg/dL (0.2-1.3); Total Protein 6.3 g/dL (6.3-8.2)
[2022-06-13 14:11] LABS: Partial Thromboplastin Time 25.8 sec (22.0-30.0); Prothrombin Time 11.2 sec (9.0-12.0)
[2022-06-13 14:26] LABS: Appearance,Urine Clear (Clear); Bilirubin,Urine Negative (Negative); Blood,Urine Negative (Negative); Color,Urine Yellow; Glucose,Urine (UA) Negative (Negative); Hyaline Casts,Urine 1 /lpf (0-2); Ketones,Urine Negative (Negative); Leukocyte Esterase,Urine Moderate (Negative); Mucus,Urine Rare /hpf; Nitrite,Urine Negative (Negative); PH, Urine 5.5 (5.0-8.0); Protein,Urine Negative (Negative); RBC,Urine 1 /hpf (0-5); Specific Gravity,Urine 1.011 (1.001-1.035); Squamous Epithelial Cell,Urine 1 /hpf (0-4); Urobilinogen,Urine <2.0 mg/dL (<2.0); WBC,Urine 2 /hpf (0-5)
[2022-06-13] MEDS ORDERED: MAGNESIUM OXIDE 400 MG TAB PO STA (14:33)
[2022-06-13] MEDS ORDERED: NALOXONE 0.4 MG/ML 1 ML VIAL IV PRN (16:05)
[2022-06-13] MEDS: SODIUM CHLORIDE 0.9% 1,000 ML IV SCH (17:16)
[2022-06-13] MEDS: GABAPENTIN 300 MG CAP PO SCH (20:41)
[2022-06-14] MEDS: SODIUM CHLORIDE 0.9% 1,000 ML IV SCH ×3 (00:44→15:00)
[2022-06-14] MEDS ORDERED: MELATONIN 3 MG TABLET PO STA (02:02)
[2022-06-14] MEDS ORDERED: QUEtiapine 200 MG TAB PO STA (04:35)
[2022-06-14] MEDS ORDERED: KETOROLAC 15 MG/ML 1 ML VIAL IVP STA (04:35)
[2022-06-14] MEDS: traMADol 50 MG TAB PO SCH ×2 (08:40→14:01)
[2022-06-14] MEDS: GABAPENTIN 300 MG CAP PO SCH (08:40)
[2022-06-14 08:54] LABS: Basophils # (A) 0.01 X 10*3/uL (0.00-0.10); Basophils % (A) 0.3 %; Eosinophils # (A) 0.03 X 10*3/uL (0.04-0.35); HCT 31.2 % (37.2-46.3); HGB 10.6 g/dL (12.0-15.0); Immature Grans, Automated 0 %; Lymphocytes # (A) 1.24 X 10*3/uL (0.90-5.00); Lymphocytes % (A) 39.5 %; MCH 30.5 pg (27.0-32.0); MCV 89.9 fL (80.0-97.0); Mean Platelet Volume 10.8 fL (9.5-12.2); Monocytes % (A) 9.6 %; NRBC Per 100 WBC 0 /100 WBCS (0.0-0.0); Neutrophils # (A) 1.56 X 10*3/uL (1.80-7.70); Neutrophils % (A) 49.6 %; Platelet Count 136 X 10*3/uL (140-440); RBC 3.47 X 10*6/uL (4.10-5.20); RDW 13.1 % (11.5-14.5); WBC 3.14 X 10*3/uL (4.50-10.00)
[2022-06-14] MEDS ORDERED: lisinopriL 20 MG TAB PO SCH (09:00)
[2022-06-14 09:04] LABS: African American GFR (CKD) 105.3 (60.0-200.0); Albumin 3.4 g/dL (3.8-4.9); Albumin/Globulin Ratio 1.27 (1.60-3.17); Anion Gap 8.1 mmol/L (10.00-18.00); BUN/Creat Ratio 21.08 Ratio (12.00-20.00); Blood Urea Nitrogen 15.2 mg/dL (9.0-27.0); Calcium 8.5 mg/dL (8.7-10.3); Carbon Dioxide 21.8 mmol/L (20.0-27.5); Globulin 2.7 g/dL (1.6-3.3); Magnesium 1.6 mg/dL (1.5-2.4); Non-African American GFR(CKD) 90.9 (60.0-200.0); Potassium 4.3 mmol/L (3.5-5.5); Total Bilirubin 0.5 mg/dL (0.30-1.20); Total Protein 6.1 g/dL (6.2-8.2)
[2022-06-14 09:38] VITALS: RESP 16
[2022-06-14 14:10] VITALS: BP 182/77; PULSE 85; TEMP 100
--- NOTE | 2022-06-14 17:15 | P.CN ---
Psychiatric Consult - . Consult date: 06/14/22 Consult:: 06/14/22 16:54 IDENTIFYING DATA: This patient is a 62-year-old female REASON FOR REFERRAL: Psychiatry was consulted for depression HISTORY OF PRESENT ILLNESS: The patient presented to the hospital for hypo tension and syncope. Patient was seen bedside. She was calm upon approach but as the interview progressed, she repeatedly stated that she was panicking and needed medication for panic. She spontaneously states that she haed been traveling from [place] and that the encounters that she had there caused her to feel depressed. She reports feeling sad and endorses trouble sleeping even with melatonin. She shares that she feels lonely. She endorses low energy. She reports not eating well and denies trouble focusing. Patient endorses a history of trouble sleeping with elevated energy levels. However, it is difficult to delineate symptoms of potential hypomania or patel given her history of benzodiazepine and opioid use. Patient is fixated on having panic and repeatedly states that she does not feel she can complete the assessment. The patient was in no acute distress. At this time patient denies any suicidal or homical ideations, intent or plan. Patient denies any auditory, visual hallucinations and denies any paranoia or delusions. PAST PSYCHIATRIC HISTORY: Patient has a a history of bipolar. She reports being on Wellbutrin, Lamictal, Adderall, Xanax in the past. Per chart review, patient was also on Vistaril, Zoloft, Neurontin in the past. She states that she sees Dr."has a psychiatrist in [place]. She endorses a history of hospitalizations but is disinterested in discussing this further. There is a history of overdosing on Klonopin PAST MEDICAL HISTORY: COPD, hypertension, arthritis ALLERGIES: as per EMR. CHEMICAL DEPENDENCY HISTORY: Benzodiazepine overuse, history of opioid use. She would not elaborate further. Denies alcohol use. She does endorse one pack per day tobacco use FAMILY PSYCHIATRIC/SUBSTANCE USE HISTORY: She suspects her mother had mental illness but denies suicide attempts in the family SOCIAL HISTORY: Patient was [place] [facility] She reports being raised by her parents and having 2 brothers and 1 sister. She denies ever being . She states that she has 4 children. The patient's daughter in 2001. MENTAL STATUS EXAM: General Appearance: Patient appears to be stated age is alert but uncooperative. Patient appears to have fair hygiene and grooming wearing hospital gown with fair eye contact. Behavior: When she notices that she is being observed, she is restless Speech: Patient's speech is fluent and nonpressured. Mood/Affect: Patient reports their mood is "depressed", she is irritable affect is incongruent Suicidality/Homicidality: Patient denies having any suicidal or homicidal ideation intent or plan. Perceptions: Patient denies any visual hallucinations and denies any auditory hallucinations Though content/process: There is no evidence of any delusional thought content and thought process is linear and goal-directed. Memory and concentration: AOX3, grossly intact for the purposes of this session. Judgment and insight: poor IMPRESSIONS: Adjustment disorder with depressive and anxious features Benzodiazepine use disorder- Displays symptoms consistent with seeking benzos/opioids PLAN: -At this time patient DOES NOT meet criteria for inpatient psychiatric a dmission. -Would recommend the following medication changes/additions: Zoloft 50 mg daily for anxiety and mood and trazodone 50 mg qHS for sleep -rail maintenance worker to provide patient with outpatient mental health/psychiatry/substance use resources for appropriate follow up upon discharge -Holter Technician spoke with patient about substance abuse and the deleterious effects on medical and mental health. -Communicated plan to patient's nurse -Psychiatry will sign off at this time -Please contact with any questions.
--- NOTE | 2022-06-14 17:15 | P.CN ---
Psychiatric Consult - . Consult date: 06/14/22 Consult:: 06/14/22 16:54 IDENTIFYING DATA: This patient is a 62-year-old female REASON FOR REFERRAL: Psychiatry was consulted for depression HISTORY OF PRESENT ILLNESS: The patient presented to the hospital for hypo tension and syncope. Patient was seen bedside. She was calm upon approach but as the interview progressed, she repeatedly stated that she was panicking and needed medication for panic. She spontaneously states that she haed been traveling from [place] and that the encounters that she had there caused her to feel depressed. She reports feeling sad and endorses trouble sleeping even with melatonin. She shares that she feels lonely. She endorses low energy. She reports not eating well and denies trouble focusing. Patient endorses a history of trouble sleeping with elevated energy levels. However, it is difficult to delineate symptoms of potential hypomania or patel given her history of benzodiazepine and opioid use. Patient is fixated on having panic and repeatedly states that she does not feel she can complete the assessment. The patient was in no acute distress. At this time patient denies any suicidal or homical ideations, intent or plan. Patient denies any auditory, visual hallucinations and denies any paranoia or delusions. PAST PSYCHIATRIC HISTORY: Patient has a a history of bipolar. She reports being on Wellbutrin, Lamictal, Adderall, Xanax in the past. Per chart review, patient was also on Vistaril, Zoloft, Neurontin in the past. She states that she sees Dr."has a psychiatrist in [place]. She endorses a history of hospitalizations but is disinterested in discussing this further. There is a history of overdosing on Klonopin PAST MEDICAL HISTORY: COPD, hypertension, arthritis ALLERGIES: as per EMR. CHEMICAL DEPENDENCY HISTORY: Benzodiazepine overuse, history of opioid use. She would not elaborate further. Denies alcohol use. She does endorse one pack per day tobacco use FAMILY PSYCHIATRIC/SUBSTANCE USE HISTORY: She suspects her mother had mental illness but denies suicide attempts in the family SOCIAL HISTORY: Patient was [place] raised [place] [facility] She reports being raised by her parents and having 2 brothers and 1 sister. She denies ever being . She states that she has 4 children. The patient's daughter in 2001. MENTAL STATUS EXAM: General Appearance: Patient appears to be stated age is alert but uncooperative. Patient appears to have fair hygiene and grooming wearing hospital gown with fair eye contact. Behavior: When she notices that she is being observed, she is restless Speech: Patient's speech is fluent and nonpressured. Mood/Affect: Patient reports their mood is "depressed", she is irritable affect is incongruent Suicidality/Homicidality: Patient denies having any suicidal or homicidal ideation intent or plan. Perceptions: Patient denies any visual hallucinations and denies any auditory hallucinations Though content/process: There is no evidence of any delusional thought content and thought process is linear and goal-directed. Memory and concentration: AOX3, grossly intact for the purposes of this session. Judgment and insight: poor IMPRESSIONS: Adjustment disorder with depressive and anxious features Benzodiazepine use disorder- Displays symptoms consistent with seeking benzos/opioids PLAN: -At this time patient DOES NOT meet criteria for inpatient psychiatric a dmission. -Would recommend the following medication changes/additions: Zoloft 50 mg daily for anxiety and mood and trazodone 50 mg qHS for sleep -home economics extension worker to provide patient with outpatient mental health/psychiatry/substance use resources for appropriate follow up upon discharge -Architectural Modeler spoke with patient about substance abuse and the deleterious effects on medical and mental health. -Communicated plan to patient's nurse -Psychiatry will sign off at this time -Please contact with any questions.
[2022-06-14] MEDS ORDERED: traZODone HCL 50 MG TAB PO SCH (21:00)
[2022-06-15] MEDS ORDERED: SERTRALINE 50 MG TAB PO SCH (09:00)
--- NOTE | 2022-06-15 23:12 | HP ---
HISTORY AND PHYSICAL CHIEF COMPLAINT: Syncopal episode. HISTORY OF PRESENT ILLNESS: This is another admission for this 62-year-old female. Her history is not clear. She had stated that she was moving back to [place]. Apparently, she had gone there and was driving back and had a syncopal episode. It is not known if this happened while she is driving or not. However, she was brought to the emergency room and was evaluated for admission. There is no evidence of any heart problem, arrhythmia, headache, neurologic deficit, fever, chills, etc. She was complaining a lot of neck pain, but she has always had a great deal of pain for which she has been on heavy doses of narcotic analgesics. REVIEW OF SYSTEMS: She denies any headache, focal neurologic deficits, chest pain, abdominal pain, nausea, vomiting, hematemesis, melena, hematochezia, incontinence, etc. Past medical history, family history, personal and social histories are otherwise unremarkable other than her depression. She does smoke heavily. PHYSICAL EXAMINATION: VITAL SIGNS: Blood pressure 136/85 with a pulse of 64, respirations are 19, and she is afebrile. GENERAL: She appeared to be slender and depressed. SKIN: Dry. HEAD, EARS, EYES, NOSE, MOUTH AND THROAT: Normal. NECK: Carotids are normal. CHEST: Clear. CARDIAC: Normal. ABDOMEN: Soft and nontender. EXTREMITIES: Normal. NEUROLOGICAL: She was intact. ASSESSMENT: She is admitted to the hospital with diagnoses: 1. Syncopal episode, etiology unknown. 2. Neck pain. 3. Major depression. 4. Chronic obstructive pulmonary disease. 5. Narcotic dependency. PLAN: 1. Bedrest. 2. IV fluids. 3. Frequent monitoring of her neurologic status and vital signs. 4. Telemetry. MMODL / IJN: [id number] /
--- NOTE | 2022-06-15 23:42 | DS ---
DISCHARGE SUMMARY CHIEF COMPLAINT: Syncopal episode, delirium, and hypotension. HISTORY OF PRESENT ILLNESS AND PHYSICAL EXAMINATION: Details of this lady's history and physical can be found in the initial workup. LABORATORY STUDIES: While she was in the hospital, she had laboratory studies, can be found in the laboratory section of her chart. COURSE IN THE HOSPITAL: After admission, she was placed on bedrest, started on intravenous fluids and telemetry. She continued to complain about pain in her neck and demanded her narcotics, which included Vicodin 10 mg q.i.d. She was explained that we cannot give her those medications given her history of having had a syncopal episode with hypotension. She became angry and signed out AMA. FINAL DIAGNOSES: 1. Hypotension. 2. Syncope. 3. Neck pain. 4. Chronic obstructive pulmonary disease. 5. Depression. She will be contacted as an outpatient for followup. MMSTEVEL / VICKIN: [id number] /
== END 2022-06-14 17:15 | disposition left against medical advice (07) ==
LOC: EC 12:33 → 6NMEDSUR 16:05
PROVIDERS: ADMIT Family Medicine; ATTEND Family Medicine
DX: I95.9 Hypotension, unspecified (principal); R55 Syncope and collapse; M54.2 Cervicalgia; F11.20 Opioid dependence, uncomplicated; Z53.29 Procedure and treatment not carried out because of patient's decision for other reasons; I10 Essential (primary) hypertension; J44.9 Chronic obstructive pulmonary disease, unspecified; R94.31 Abnormal electrocardiogram [ECG] [EKG]; R00.1 Bradycardia, unspecified; M06.9 Rheumatoid arthritis, unspecified; M54.40 Lumbago with sciatica, unspecified side; M41.9 Scoliosis, unspecified; F31.9 Bipolar disorder, unspecified; F41.0 Panic disorder [episodic paroxysmal anxiety]; F41.9 Anxiety disorder, unspecified; F17.200 Nicotine dependence, unspecified, uncomplicated; Z20.822 Contact with and (suspected) exposure to COVID-19; Z79.899 Other long term (current) drug therapy; Z90.49 Acquired absence of other specified parts of digestive tract; Z98.1 Arthrodesis status
CPT/HCPCS: 96361 ×2; 96375; 96374; 99285; 36415; 93005; 80053 ×2; 83605; 83735 ×2; 84100; 84443; 84484; 85025 ×2; 85610; 85730; 81001; 87502; 87635; 71046; 74018; G0378 ×2; J2270; J1885

== ENCOUNTER 2023-12-30 14:42 | Emergency (ER) | payer MEDICARE, OTHER ==
[2023-12-30 15:13] VITALS: RESP 18; TEMP 97.8
--- NOTE | 2023-12-30 15:44 | ED ---
Back Pain HPI - General Source: patient, RN notes reviewed Limitations: no limitations <Michelle Borja - Last Filed: 12/30/23 15:42> <Abiola Cooper - Last Filed: 12/30/23 20:12> - General Chief Complaint: Back Pain/Injury Stated Complaint: Pain maintenance Time Seen by Provider: 12/30/23 15:00 - History of Present Illness Initial Comments: Quick noteis a 63-year-old female with a history of chronic neck and back pain emergency room chief complaint of neck pain. Patient states that she has moved to the area recently and has not been able to make an appointment with her senior contract specialist until February. (Michelle Borja) 63-year-old female presents to the emergency department for evaluation of chronic pain issues. Patient states that she recently moved back to [place] from [place] about 7 weeks ago. Since then she has been having difficulties switching her insurance back. Because of this, she has had trouble getting into her primary care provider and senior contract specialist. She has a history of chronic neck and back pain. She states that she typically takes [place] 10 mg and gabapentin. She also reports a history of hypertension. She states that she ran out of her home medication but has been taking an old prescription. She denies chest pain, shortness of breath, headache. (Abiola Cooper) - Related Data Home Medications Medication Instructions Recorded Confirmed Gabapentin 300 mg PO BID 12/25/21 06/13/22 HYDROcodone/APAP 10-325MG [[place] 1 tab PO QID 12/25/21 06/13/22 10-325] Lisinopril-Hctz 20-25 mg 1 tab PO DAILY 12/25/21 06/13/22 [Zestoretic 20-25] Previous Rx's Medication Instructions Recorded Gabapentin [Neurontin] 200 mg PO BID 3 Days #12 cap 12/30/23 Lisinopril-Hctz 10-12.5 mg 1 tab PO DAILY #14 tab 12/30/23 [Zestoretic 10-12.5] Allergies Allergy/AdvReac Type Severity Reaction Status Date / Time No Known Allergies Allergy Verified 12/30/23 14:54 Review of Systems ROS Other: All systems not noted in ROS Statement are negative. <Michelle Borja - Last Filed: 12/30/23 15:42> ROS Other: All systems not noted in ROS Statement are negative. <Abiola Cooper - Last Filed: 12/30/23 20:12> ROS Statement: Those systems with pertinent positive or pertinent negative responses have been documented in the HPI. Past Medical History Past Medical History: COPD, Hypertension Additional Past Medical History / Comment(s): RA, arthritis DDD, siatic nerve pain, Left leg weakness. Lower back pain. History of Any Multi-Drug Resistant Organisms: None Reported Past Surgical History: Back Surgery, Cholecystectomy Past Anesthesia/Blood Transfusion Reactions: No Reported Reaction Past Psychological History: Anxiety, Bipolar, Depression, Panic Disorder Smoking Status: Current every day smoker Past Alcohol Use History: None Reported Past Drug Use History: None Reported <Michelle Borja - Last Filed: 12/30/23 15:42> General Exam Limitations: no limitations <Michelle Borja - Last Filed: 12/30/23 15:42> Limitations: no limitations General appearance: alert, in no apparent distress, anxious Head exam: Present: atraumatic, normocephalic, normal inspection Eye exam: Present: normal appearance, PERRL, EOMI. Absent: scleral icterus, conjunctival injection, periorbital swelling ENT exam: Present: normal exam, mucous membranes moist Neck exam: Present: normal inspection. Absent: tenderness, meningismus, lymphadenopathy Respiratory exam: Present: normal lung sounds bilaterally. Absent: respiratory distress, wheezes, rales, rhonchi, stridor Cardiovascular Exam: Present: regular rate, normal rhythm, normal heart sounds. Absent: systolic murmur, diastolic murmur, rubs, gallop, clicks GI/Abdominal exam: Present: soft, normal bowel sounds. Absent: distended, tenderness, guarding, rebound, rigid Extremities exam: Present: normal inspection, full ROM, normal capillary refill. Absent: tenderness, pedal edema, joint swelling, calf tenderness Back exam: Present: normal inspection Neurological exam: Present: alert, oriented X3 Psychiatric exam: Present: anxious Skin exam: Present: warm, dry, intact, normal color. Absent: rash <Abiola Cooper - Last Filed: 12/30/23 20:12> - General Exam Comments Initial Comments: Visual Physical Exam Vital signs reviewed General: Well-appearing, nontoxic, no acute distress. Head: Normocephalic, atraumatic Eyes: PERRLA, EOMI ENT: Airway patent Chest: Nonlabored breathing Skin: No visual rash, normal skin tone Neuro: Alert and oriented 3 Musculoskeletal: No gross abnormalities (Michelle Borja) Course Vital Signs 12/30/23 12/30/23 14:51 16:36 Temperature 97.8 F Pulse Rate 90 85 Respiratory 18 18 Rate Blood Pressure 193/114 174/95 O2 Sat by Pulse 98 98 Oximetry Medical Decision Making <Michelle Borja - Last Filed: 12/30/23 15:42> - Lab Data Result diagrams: 12/30/23 17:15 12/30/23 17:15 <Abiola Cooper - Last Filed: 12/30/23 20:12> - Medical Decision Making I completed the quick note portion of this chart signed Michelle Borja PA-C (Michelle Borja) Was pt. sent in by a medical professional or institution ([facility], BAKE ROOM WORKER, urgent care, hospital, or senior living...) When possible be specific @ -No Did you speak to anyone other than the patient for history (EMS, parent, family, police, friend...)? What history was obtained from this source @ -No Did you review nursing and triage notes (agree or disagree)? Why? @ -I reviewed and agree with nursing and triage notes Were old charts reviewed (outside hosp., previous admission, EMS record, old EKG, old radiological studies, urgent care reports/EKG's, senior living records)? Report findings @ -No old charts were reviewed Differential Diagnosis (chest pain, altered mental status, abdominal pain women, abdominal pain men, vaginal bleeding, weakness, fever, dyspnea, syncope, headache, dizziness, GI bleed, back pain, seizure, CVA, palpatations, mental health, musculoskeletal)? @ -Differential Back Pain: Strain, zoster, cauda equina syndrome, epidural abscess, vertebral osteomyelitis, discitis, fracture, subluxation, disc herniation, DJD, spinal stenosis, dissection, AAA, pancreatitis, peptic ulcer disease, pyelonephritis, kidney stone, this is not meant to be an all-inclusive list. EKG interpreted by me (3pts min.). @ -EKG at 1459 shows sinus rhythm rate 86, OH 134, QRS 85, QTQTc [id number] X-rays interpreted by me (1pt min.). @ -None done CT interpreted by me (1pt min.). @ -None done U/S interpreted by me (1pt. min.). @ -None done What testing was considered but not performed or refused? (CT, X-rays, U/S, labs)? Why? @ -Imaging considered, patient has history of chronic pain and states that this is no different than usual What meds were considered but not given or refused? Why? @ -None Did you discuss the management of the patient with other professionals (professionals i.e. , PA, BAKE ROOM WORKER, lab, RT, psych nurse, social work nurse, punch out crew member, teacher, chief creative officer, hospice case manager)? Give summary @ -No Was smoking cessation discussed for >3mins.? @ -No Was critical care preformed (if so, how long)? @ -No Were there social determinants of health that impacted care today? How? (Homelessness, low income, unemployed, alcoholism, drug addiction, transportation, low edu. Level, literacy, decrease access to med. care, residential, rehab)? @ -No Was there de-escalation of care discussed even if they declined (Discuss DNR or withdrawal of care, Hospice)? DNR status @ -No What co-morbidities impacted this encounter? (DM, HTN, Smoking, COPD, CAD, Cancer, CVA, ARF, Chemo, Hep., AIDS, mental health diagnosis, sleep apnea, morbid obesity)? @ -None Was patient admitted / discharged? Hospital course, mention meds given and route, prescriptions, significant lab abnormalities, going to OR and other pertinent info. @ -Discharge. Patient presented to the emergency department for evaluation of chronic pain in hopes of obtaining pain control. Patient found to be hypertensive on arrival. EKG was obtained. She is not having any chest pain, shortness of breath, headache. Basic laboratory studies obtained which shows CBC unremarkable, normal electrolytes. Patient provided her typical dose of [place]. Prescription was sent for her gabapentin and blood pressure medication. Patient stable at time of discharge. Case discussed with Dr. Moreno Undiagnosed new problem with uncertain prognosis? @ -No Drug Therapy requiring intensive monitoring for toxicity (Heparin, Nitro, Insulin, Cardizem)? @ -No Were any procedures done? @ -No Diagnosis/symptom? @ -Neck pain, back pain, hypertension Acute, or Chronic, or Acute on Chronic? @ -Chronic Uncomplicated (without systemic symptoms) or Complicated (systemic symptoms)? @ -Uncomplicated Side effects of treatment? @ -No Exacerbation, Progression, or Severe Exacerbation? @ -No Poses a threat to life or bodily function? How? (Chest pain, [place], [place], pneumonia, PE, COPD, DKA, ARF, appy, cholecystitis, CVA, Diverticulitis, Homicidal, Suicidal, threat to staff... and all critical care pts) @ -No (Abiola Cooper) - Lab Data Lab Results 12/30/23 12/30/23 Range/Units 17:15 17:15 WBC 5.7 (3.8-10.6) k/uL RBC 4.29 (3.80-5.40) m/uL Hgb 14.3 (11.4-16.0) gm/dL Hct 42.2 (34.0-46.0) % MCV 98.2 (80.0-100.0) fL MCH 33.4 (25.0-35.0) pg MCHC 34.0 (31.0-37.0) g/dL RDW 12.0 (11.5-15.5) % Plt Count 124 L (150-450) k/uL MPV 8.1 Neutrophils % 60 % Lymphocytes % 31 % Monocytes % 4 % Eosinophils % 2 % Basophils % 1 % Neutrophils # 3.4 (1.3-7.7) k/uL Lymphocytes # 1.8 (1.0-4.8) k/uL Monocytes # 0.2 (0-1.0) k/uL Eosinophils # 0.1 (0-0.7) k/uL Basophils # 0.0 (0-0.2) k/uL Sodium 138 (137-145) mmol/L Potassium 4.2 (3.5-5.1) mmol/L Chloride 107 (98-107) mmol/L Carbon Dioxide 18 L (22-30) mmol/L Anion Gap 13 mmol/L BUN 20 H (7-17) mg/dL Creatinine 0.60 (0.52-1.04) mg/dL Est GFR (CKD-EPI)AfAm >90 (>60 ml/min/1.73 sqM) Est GFR (CKD-EPI)NonAf >90 (>60 ml/min/1.73 sqM) Glucose 93 (74-99) mg/dL Calcium 9.4 (8.4-10.2) mg/dL Magnesium 1.7 (1.6-2.3) mg/dL Total Bilirubin 0.9 (0.2-1.3) mg/dL AST 98 H (14-36) U/L ALT 85 H (4-34) U/L Alkaline Phosphatase 113 (38-126) U/L Total Protein 7.8 (6.3-8.2) g/dL Albumin 4.1 (3.5-5.0) g/dL Disposition <Michelle Borja - Last Filed: 12/30/23 15:42> Is patient prescribed a controlled substance at d/c from ED?: Yes When asked, does pt state using other controlled substances?: No If prescribed controlled substance>3 days was MAPS reviewed?: Prescribed <3 Days <Abiola Cooper - Last Filed: 12/30/23 20:12> Clinical Impression: Chronic pain, Hypertension Disposition: HOME SELF-CARE Condition: Stable Instructions (If sedation given, give patient instructions): Chronic Pain (ED) Additional Instructions: Please follow up with a local primary care provider and your senior contract specialist. Return to the emergency department for new or worsening symptoms. Prescriptions: Gabapentin [Neurontin] 200 mg PO BID 3 Days #12 cap Lisinopril-Hctz 10-12.5 mg [Zestoretic 10-12.5] 1 tab PO DAILY #14 tab Referrals: Edwin Ferguson MD [Primary Care Provider] - 1-2 days
[2023-12-30 16:54] VITALS: BP 174/95; PULSE 85
[2023-12-30 17:28] LABS: Basophils % (A) 1 %; Eosinophils # (A) 0.1 k/uL (0-0.7); Eosinophils % (A) 2 %; HCT 42.2 % (34.0-46.0); HGB 14.3 gm/dL (11.4-16.0); Lymphocytes # (A) 1.8 k/uL (1.0-4.8); Lymphocytes % (A) 31 %; MCH 33.4 pg (25.0-35.0); MCV 98.2 fL (80.0-100.0); Mean Platelet Volume 8.1; Monocytes # (A) 0.2 k/uL (0-1.0); Monocytes % (A) 4 %; Neutrophils # (A) 3.4 k/uL (1.3-7.7); Neutrophils % (A) 60 %; Platelet Count 124 k/uL (150-450); RBC 4.29 m/uL (3.80-5.40); WBC 5.7 k/uL (3.8-10.6)
[2023-12-30 17:34] LABS: ALT 85 U/L (4-34); African American GFR (CKD) >90 (>60 ml/min/1.73 sqM); Albumin 4.1 g/dL (3.5-5.0); Anion Gap 13 mmol/L; Blood Urea Nitrogen 20 mg/dL (7-17); Calcium 9.4 mg/dL (8.4-10.2); Carbon Dioxide 18 mmol/L (22-30); Chloride 107 mmol/L (98-107); Glucose 93 mg/dL (74-99); Non-African American GFR(CKD) >90 (>60 ml/min/1.73 sqM); Sodium 138 mmol/L (137-145); Total Bilirubin 0.9 mg/dL (0.2-1.3); Total Protein 7.8 g/dL (6.3-8.2)
[2023-12-30 17:40] LABS: AST 98 U/L (14-36); Alkaline Phosphatase 113 U/L (38-126); Magnesium 1.7 mg/dL (1.6-2.3); Potassium 4.2 mmol/L (3.5-5.1)
[2023-12-30] MEDS: HYDROcodone/APAP 10-325MG 1 EACH TAB PO ONE (18:15)
== END 2023-12-30 18:16 | disposition home or self-care (01) ==
LOC: EC 14:42
DX: G89.29 Other chronic pain (principal); M54.2 Cervicalgia; M54.9 Dorsalgia, unspecified; I10 Essential (primary) hypertension; F17.200 Nicotine dependence, unspecified, uncomplicated; Z79.899 Other long term (current) drug therapy
CPT/HCPCS: 36415; 80053; 83735; 85025; 99284

== ENCOUNTER 2024-07-23 20:13 | Emergency (ER) | payer MEDICARE, OTHER ==
[2024-07-23 20:24] VITALS: RESP 18; TEMP 99.4
[2024-07-23] MEDS: ORPHENADRINE 30 MG/ML 2 ML VIAL IM STA (20:35)
[2024-07-23] MEDS: KETOROLAC 15 MG/ML 1 ML VIAL IM STA (20:37)
--- NOTE | 2024-07-23 20:57 | XR ---
EXAMINATION TYPE: XR lumbar spine 2 or 3V, XR thoracic spine 2V DATE OF EXAM: 07/23/2024 8:47 PM COMPARISON: None available. CLINICAL INDICATION: Female, 64 years old with history of back pain; [facility] TECHNIQUE: XR lumbar spine 2 or 3V, XR thoracic spine 2V - Frontal, lateral and coned in L5-S1 latera l views of the spine. FINDINGS: Thoracic spine: Multilevel intervertebral disc space loss and anterior osteophyte formation. Mild multilevel thoracic spine compression deformities, likely chronic when compared with prior chest radiograph dated 2021. Multilevel facet arthropathy. No definite acute subluxation. Visualized portions of the chest a nd straight no acute pathology. Partially visualized anterior cervical spinal fusion hardware. Lumbosacral spine: Levoconvex scoliotic curvature. Posterior fusion hardware visualized spanning L3-L5. No periprostheti c lucency. No acute hardware complication. Multilevel facet arthropathy. Mild compression deformity o f the L1 superior endplate. Previous cholecystectomy noted. IMPRESSION: 1. No definite radiographic evidence of acute fracture or subluxation. 2. Multilevel thoracic lumbar spine degenerative changes as above. 3. Posterior fusion hardware spanning L3-L5 without evidence of acute hardware complication. [facility], , 07/23/2024 8:55 PM
[2024-07-23] MEDS: ONDANSETRON ODT 4 MG TAB PO STA (20:59)
[2024-07-23] MEDS: diphenhydrAMINE 50 MG/ML 1 ML VIAL IVP STA (21:40)
[2024-07-23] MEDS: METOCLOPRAMIDE 5 MG/ML 2 ML VIAL IVP STA (21:41)
[2024-07-23] MEDS: HYDROmorphone 1 MG/ML 1 ML SYRINGE IVP STA (21:42)
[2024-07-23 21:55] LABS: Basophils % (A) 0 %; Eosinophils # (A) 0.1 k/uL (0-0.7); Eosinophils % (A) 3 %; HGB 11.8 gm/dL (11.4-16.0); Lymphocytes # (A) 1.4 k/uL (1.0-4.8); Lymphocytes % (A) 38 %; MCH 30.8 pg (25.0-35.0); MCHC 33.7 g/dL (31.0-37.0); MCV 91.2 fL (80.0-100.0); Monocytes # (A) 0.3 k/uL (0-1.0); Monocytes % (A) 7 %; Neutrophils # (A) 1.8 k/uL (1.3-7.7); Neutrophils % (A) 49 %; Platelet Count 122 k/uL (150-450); RBC 3.84 m/uL (3.80-5.40); RDW 12.4 % (11.5-15.5); WBC 3.7 k/uL (3.8-10.6)
[2024-07-23 22:10] LABS: ALT 59 U/L (4-34); AST 90 U/L (14-36); African American GFR (CKD) >90 (>60 ml/min/1.73 sqM); Albumin 3.1 g/dL (3.5-5.0); Alkaline Phosphatase 143 U/L (38-126); Anion Gap 2 mmol/L; Blood Urea Nitrogen 25 mg/dL (7-17); Calcium 8.6 mg/dL (8.4-10.2); Carbon Dioxide 24 mmol/L (22-30); Chloride 108 mmol/L (98-107); Glucose 89 mg/dL (74-99); Non-African American GFR(CKD) 85 (>60 ml/min/1.73 sqM); Potassium 4.1 mmol/L (3.5-5.1); Sodium 134 mmol/L (137-145); Total Bilirubin 0.8 mg/dL (0.2-1.3); Total Protein 6.3 g/dL (6.3-8.2)
--- NOTE | 2024-07-23 22:37 | ED ---
Back Pain HPI - General Chief Complaint: Back Pain/Injury Stated Complaint: Back Pain Time Seen by Provider: 07/23/24 20:25 Source: patient, EMS Limitations: no limitations - History of Present Illness Initial Comments: 64-year-old female with chronic back and neck pain who presents emergency department reporting chronic neck and back pain. She states that she is currently following over at [facility] for her back pain. She is in a pain contract. She is prescribed [place] for her pain. States that she tries to use them only when needed. She is currently running out of her prescription. She does have an appointment for evaluation and injections in her neck on the fourth but she states that she is having a hard time making it to that appointment. Presents to the emergency department requesting pain control. She admits to pain going down her right leg. The radicular pain is also chronic for her. She denies use of blood thinners. No fevers. No history of intravenous drug use. Does admit to a fall however it was 7 months ago when she fell out of bed. Reports to me that she has not had any imaging since this fall. Patient denies any worsening of her symptoms she just felt like today she was not managing it well. She denies any headaches or visual changes. No chest pain or difficulty breathing. No abdominal pain. No other alleviating, p recipitating or modifying factors - Related Data Home Medications Medication Instructions Recorded Confirmed Gabapentin 300 mg PO BID 12/25/21 06/13/22 HYDROcodone/APAP 10-325MG [[place] 1 tab PO QID 12/25/21 06/13/22 10-325] Lisinopril-Hctz 20-25 mg 1 tab PO DAILY 12/25/21 06/13/22 [Zestoretic 20-25] Previous Rx's Medication Instructions Recorded Gabapentin [Neurontin] 200 mg PO BID 3 Days #12 cap 12/30/23 Lisinopril-Hctz 10-12.5 mg 1 tab PO DAILY #14 tab 12/30/23 [Zestoretic 10-12.5] methylPREDNISolone Dose Pack 4 mg PO DIRECTED #21 tab 07/23/24 [Medrol Dose Pack] Allergies Allergy/AdvReac Type Severity Reaction Status Date / Time No Known Allergies Allergy Verified 12/30/23 14:54 Review of Systems ROS Statement: Those systems with pertinent positive or pertinent negative responses have been documented in the HPI. ROS Other: All systems not noted in ROS Statement are negative. Past Medical History Past Medical History: COPD, Hypertension Additional Past Medical History / Comment(s): RA, arthritis DDD, siatic nerve pa in, Left leg weakness. Lower back pain. History of Any Multi-Drug Resistant Organisms: None Reported Past Surgical History: Back Surgery, Cholecystectomy Past Anesthesia/Blood Transfusion Reactions: No Reported Reaction Past Psychological History: Anxiety, Bipolar, Depression, Panic Disorder Smoking Status: Current every day smoker Past Alcohol Use History: None Reported Past Drug Use History: None Reported General Exam Limitations: no limitations General appearance: alert, in no apparent distress Head exam: Present: atraumatic, normocephalic, normal inspection Eye exam: Present: normal appearance, PERRL, EOMI. Absent: scleral icterus, conjunctival injection, periorbital swelling ENT exam: Present: normal exam, mucous membranes moist Neck exam: Present: normal inspection. Absent: tenderness, meningismus, lymphadenopathy Respiratory exam: Present: normal lung sounds bilaterally. Absent: respiratory distress, wheezes, rales, rhonchi, stridor Cardiovascular Exam: Present: regular rate, normal rhythm, normal heart sounds. Absent: systolic murmur, diastolic murmur, rubs, gallop, clicks GI/Abdominal exam: Present: soft, normal bowel sounds. Absent: distended, tenderness, guarding, rebound, rigid Extremities exam: Present: normal inspection, full ROM, normal capillary refill. Absent: tenderness, pedal edema, joint swelling, calf tenderness Back exam: Present: normal inspection Neurological exam: Present: alert, oriented X3, CN II-XII intact Psychiatric exam: Present: normal affect, normal mood Skin exam: Present: warm, dry, intact, normal color. Absent: rash Course Vital Signs 07/23/24 07/23/24 20:20 22:49 Temperature 99.4 F Pulse Rate 94 98 Respiratory 18 18 Rate Blood Pressure 126/70 127/70 O2 Sat by Pulse 99 99 Oximetry Medical Decision Making - Medical Decision Making Was pt. sent in by a medical professional or institution (, [facility], [employer], urgent care, hospital, or fci...) When possible be specific @ -No Did you speak to anyone other than the patient for history (EMS, parent, family, police, friend...)? What history was obtained from this source @ -Spoke with EMS for history Did you review nursing and triage notes (agree or disagree)? Why? @ -I reviewed and agree with nursing and triage notes Were old charts reviewed (outside hosp., previous admission, EMS record, old EKG, old radiological studies, urgent care reports/EKG's, fci records)? Report findings @ -No old charts were reviewed Differential Diagnosis (chest pain, altered mental status, abdominal pain women, abdominal pain men, vaginal bleeding, weakness, fever, dyspnea, syncope, headache, dizziness, GI bleed, back pain, seizure, CVA, palpatations, mental health, musculoskeletal)? @ -Differential Back Pain: Strain, zoster, cauda equina syndrome, epidural abscess, vertebral osteomyelitis, discitis, fracture, subluxation, disc herniation, DJD, spinal stenosis, dissection, AAA, pancreatitis, peptic ulcer disease, pyelonephritis, kidney stone, this is not meant to be an all-inclusive list. EKG interpreted by me (3pts min.). @ -Not done X-rays interpreted by me (1pt min.). @ -Yes and demonstrates no acute injuries CT interpreted by me (1pt min.). @ -None done U/S interpreted by me (1pt. min.). @ -None done What testing was considered but not performed or refused? (CT, X-rays, U/S, labs)? Why? @ -None What meds were considered but not given or refused? Why? @ -None Did you discuss the management of the patient with other professionals (professionals i.e. , PA, [employer], lab, RT, psych nurse, pediatric social worker, website programmer, teacher, risk officer, case folder)? Give summary @ -No Was smoking cessation discussed for >3mins.? @ -No Was critical care preformed (if so, how long)? @ -No Were there social determinants of health that impacted care today? How? (Homelessness, low income, unemployed, alcoholism, drug addiction, transportation, low edu. Level, literacy, decrease access to med. care, skilled nursing, rehab)? @ -No Was there de-escalation of care discussed even if they declined (Discuss DNR or withdrawal of care, Hospice)? DNR status @ -No What co-morbidities impacted this encounter? (DM, HTN, Smoking, COPD, CAD, Cancer, CVA, ARF, Chemo, Hep., AIDS, mental health diagnosis, sleep apnea, morbid obesity)? @ -Chronic back pain Was patient admitted / discharged? Hospital course, mention meds given and route, prescriptions, significant lab abnormalities, going to OR and other pertinent info. @ -Upon arrival patient seen and evaluated in bed 31. Thorough history and physical exam was performed. Patient has no focal weakness. I did provide the patient with a dose of Toradol , zofran and Norflex. She reports that these medications make her nauseated and she does not have pain relief. I then gave her a dose of Dilaudid, Reglan and Benadryl. Patient reports improvement in her symptoms. X-ray was performed due to her reported trauma without imaging. X- ray fails to demonstrate any injury. Her hardware is maintained. I did discuss this with the patient. She does feel improved at this time. She will be discharged home on a Medrol dose pack for the radicular pain. I cannot provide her with any narcotics as she is in a pain contract. I did recommend that she call her pain management doctor on Thursday for further management of her symptoms and return for any new or worsening symptoms. Patient agreeable plan was discharged home in stable condition Undiagnosed new problem with uncertain prognosis? @ -No Drug Therapy requiring intensive monitoring for toxicity (Heparin, Nitro, Insulin, Cardizem)? @ -No Were any procedures done? @ -No Diagnosis/symptom? @ -Acute exacerbation of chronic back pain Acute, or Chronic, or Acute on Chronic? @ -Acute Uncomplicated (without systemic symptoms) or Complicated (systemic symptoms)? @ -Complicated Side effects of treatment? @ -No Exacerbation, Progression, or Severe Exacerbation? @ -No Poses a threat to life or bodily function? How? (Chest pain, USA, NM, pneumonia, PE, COPD, DKA, ARF, appy, cholecystitis, CVA, Diverticulitis, Homicidal, Suicidal, threat to staff... and all critical care pts) @ -No - Lab Data Result diagrams: 07/23/24 21:46 07/23/24 21:46 Lab Results 07/23/24 07/23/24 Range/Units 21:46 21:46 WBC 3.7 L (3.8-10.6) k/uL RBC 3.84 (3.80-5.40) m/uL Hgb 11.8 (11.4-16.0) gm/dL Hct 35.0 (34.0-46.0) % MCV 91.2 (80.0-100.0) fL MCH 30.8 (25.0-35.0) pg MCHC 33.7 (31.0-37.0) g/dL RDW 12.4 (11.5-15.5) % Plt Count 122 L (150-450) k/uL MPV 8.0 Neutrophils % 49 % Lymphocytes % 38 % Monocytes % 7 % Eosinophils % 3 % Basophils % 0 % Neutrophils # 1.8 (1.3-7.7) k/uL Lymphocytes # 1.4 (1.0-4.8) k/uL Monocytes # 0.3 (0-1.0) k/uL Eosinophils # 0.1 (0-0.7) k/uL Basophils # 0.0 (0-0.2) k/uL Sodium 134 L (137-145) mmol/L Potassium 4.1 (3.5-5.1) mmol/L Chloride 108 H (98-107) mmol/L Carbon Dioxide 24 (22-30) mmol/L Anion Gap 2 mmol/L BUN 25 H (7-17) mg/dL Creatinine 0.76 (0.52-1.04) mg/dL Est GFR (CKD-EPI)AfAm >90 (>60 ml/min/1.73 sqM) Est GFR (CKD-EPI)NonAf 85 (>60 ml/min/1.73 sqM) Glucose 89 (74-99) mg/dL Calcium 8.6 (8.4-10.2) mg/dL Total Bilirubin 0.8 (0.2-1.3) mg/dL AST 90 H (14-36) U/L ALT 59 H (4-34) U/L Alkaline Phosphatase 143 H (38-126) U/L Total Protein 6.3 (6.3-8.2) g/dL Albumin 3.1 L (3.5-5.0) g/dL Disposition Clinical Impression: Chronic back pain, Lumbar radiculopathy Disposition: HOME SELF-CARE Condition: Stable Instructions (If sedation given, give patient instructions): Chronic Back Pain (DC) Additional Instructions: Use the steroid pack as directed. Follow-up with your pain management doctor. Return for any new or worsening symptoms Prescriptions: methylPREDNISolone Dose Pack [Medrol Dose Pack] 4 mg PO DIRECTED #21 tab Is patient prescribed a controlled substance at d/c from ED?: No Referrals: Edwin Ferguson MD [Primary Care Provider] - 1-2 days Time of Disposition: 22:36
[2024-07-23 22:50] VITALS: BP 127/70; PULSE 98
[2024-07-23] MEDS: predniSONE 20 MG TAB PO STA (22:56)
== END 2024-07-23 23:08 | disposition home or self-care (01) ==
LOC: EC 20:13
DX: G89.29 Other chronic pain (principal); M54.16 Radiculopathy, lumbar region; F17.200 Nicotine dependence, unspecified, uncomplicated; W06.XXXA Fall from bed, initial encounter
CPT/HCPCS: 36415; 80053; 85025; 72070; 72100; 99284; 96374; 96375 ×2; 96372 ×2; J1200; J2360; J2765; J1171; J1885; J7512

== ENCOUNTER 2024-11-16 10:03 | Day surgery (SDC) | payer MEDICARE, OTHER ==
[2024-11-14 15:31] VITALS: BMI 21.1
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
[2024-11-16 10:38] VITALS: TEMP 97
[2024-11-16] MEDS: IV FLUID CONTINUATION 1,000 ML IV ONE (10:41)
[2024-11-16] MEDS: LACTATED RINGERS 1,000 ML IV SCH (10:49)
[2024-11-16] MEDS: ONDANSETRON 4 MG/2 ML VIAL IVP STA (11:07)
[2024-11-16] MEDS ORDERED: LIDOCAINE 1% INJ 10MG/ML (20 ML MDV) ONE (11:54)
[2024-11-16] MEDS ORDERED: PROPOFOL 10 MG/ML 20 ML VIAL IV ONE (11:54)
--- NOTE | 2024-11-16 12:25 | P.PCN ---
Date of Procedure: 11/16/24 Description of Procedure: PREOPERATIVE DIAGNOSIS: Colonoscopy screening POSTOPERATIVE DIAGNOSIS: Tubular adenoma rectum Internal hemorrhoids, grade 2 OPERATION: Colonoscopy to the ileocecal valve and appendiceal orifice, cecum Colonoscopy with hot snare polypectomy SURGEON: Seda Gutierrez MD. ANESTHESIA: MAC. INDICATIONS: The patient is an 64-year-old female who presents for first colonoscopy screening. Benefits and risks were described and informed consent was obtained. DESCRIPTION OF PROCEDURE: The patient had undergone GoLytely prep. The patient had been brought into the operating room and laid in the left lateral decubitus position. After adequate intravenous sedation, the rectum was examined with 2% lidocaine jelly. The prostate was unremarkable. External hemorrhoids were encountered. The rectal tone was within normal limits. No lesions were palpated in the rectal vault. An Olympus colonoscope was advanced until the cecum, ileocecal valve and appendiceal orifice were clearly viewed. The prep was good. No large sigmoid diverticulosis was encountered. Colonic polyps were found and removed. No evidence of focal colitis was found. Retroflexion of the scope demonstrated grade 2 internal hemorrhoids without active bleeding or inflammation. The colon was desufflated. The patient had tolerated the procedure well. Withdrawal time was over 6 minutes. FINDINGS: Aronchick preparation quality scale 2 (1-5) Internal hemorrhoids, grade 2 External hemorrhoids, grade 2. No arteriovenous malformations. No large sigmoid diverticulosis Removal of 1 polyps: - Snare polypectomy 20 cm from the anal verge, 8 mm tubulovillous adenoma, rectum No focal colitis. RECOMMENDATIONS: Recommend repeat colonoscopy 3 years, 2027 Plan - Discharge Summary Discharge Rx Participant: No New Discharge Prescriptions: Continue Gabapentin [Neurontin] 200 mg PO BID 3 Days #12 cap Lisinopril-Hctz 20-25 mg [Zestoretic 20-25] 1 tab PO BID Albuterol Inhaler [Ventolin Hfa Inhaler] 2 puff INHALATION QID PRN PRN Reason: sob Baclofen [Lioresal] 10 mg PO DAILY PRN PRN Reason: Pain Aspirin 81 mg PO DAILY HYDROcodone/APAP 7.5-325MG [[place] 7.5-325] 1 tab PO BID PRN PRN Reason: Pain Turmeric Root Extract [Turmeric] 500 mg PO DAILY Discharge Medication List Gabapentin [Neurontin] 200 mg PO BID 3 Days #12 cap 12/30/23 [Rx] Albuterol Inhaler [Ventolin Hfa Inhaler] 2 puff INHALATION QID PRN 11/14/24 [History] Aspirin 81 mg PO DAILY 11/14/24 [History] Baclofen [Lioresal] 10 mg PO DAILY PRN 11/14/24 [History] HYDROcodone/APAP 7.5-325MG [[place] 7.5-325] 1 tab PO BID PRN 11/14/24 [History] Lisinopril-Hctz 20-25 mg [Zestoretic 20-25] 1 tab PO BID 11/14/24 [History] Turmeric Root Extract [Turmeric] 500 mg PO DAILY 11/14/24 [History] Follow up Appointment(s)/Referral(s): Seda Gutierrez MD [STAFF PHYSICIAN] - As Needed Patient Instructions/Handouts: Colorectal Polyps (GEN) Activity/Diet/Wound Care/Special Instructions: Repeat colonoscopy 3 years2027 Discharge Disposition: HOME SELF-CARE
[2024-11-16 12:35] VITALS: PULSE 68
[2024-11-16 12:45] VITALS: BP 103/66; RESP 16
== END 2024-11-16 12:57 | disposition home or self-care (01) ==
LOC: ORWHC2ENDO 10:03
PROVIDERS: ATTEND Surgery Plastic and Reconstructive Surgery
DX: Z12.11 Encounter for screening for malignant neoplasm of colon (principal); D12.8 Benign neoplasm of rectum; K64.1 Second degree hemorrhoids; K64.4 Residual hemorrhoidal skin tags; I10 Essential (primary) hypertension; J44.9 Chronic obstructive pulmonary disease, unspecified; M06.9 Rheumatoid arthritis, unspecified; M19.90 Unspecified osteoarthritis, unspecified site; F41.9 Anxiety disorder, unspecified; F41.0 Panic disorder [episodic paroxysmal anxiety]; F31.9 Bipolar disorder, unspecified; F17.210 Nicotine dependence, cigarettes, uncomplicated; Z79.82 Long term (current) use of aspirin; Z79.899 Other long term (current) drug therapy; Z98.1 Arthrodesis status
CPT/HCPCS: 88305; 45385; J2405; J2003; J2704